=== PATIENT | male | born 1980 | race Caucasian/White ===

== ENCOUNTER 2019-07-01 14:59 | Emergency (ER) | payer MEDICARE, SELFPAY ==
[2019-07-01 15:02] VITALS: BP 133/89; PULSE 98; RESP 17; TEMP 36.6; O2SAT 95; BMI 21.5
--- NOTE | 2019-07-01 15:54 | XR_ITS ---
WS: [id number] Portable AP upright chest, 07/01/2019 Clinical Data: cough/congestion Comparison: PA and lateral chest, 04/26/2019. Findings: No nodules, masses or effusions are seen. The heart is normal. The pulmonary vascularity is not increased. No pneumonia or pneumothorax is seen. The diaphragms are flattened. There are calcifi ed granulomas in the right hilum and the right midlung. XR/XR chest 1V portable [id number] Impression: Hyperinflation and old granulomatous disease.
--- NOTE | 2019-07-01 16:15 | ED_ITS ---
HPI - SOB/Dyspnea General: Chief Complaint: Shortness of Breath/Dyspnea Stated Complaint: SOB Time Seen by Provider: 07/01/19 15:34 Source: patient Mode of arrival: ambulatory Limitations: no limitations History of Present Illness: HPI Narrative: Patient is a 39-year-old male who presents to ED today with complaints of feeling short of breath and a cough. Patient states he has had symptoms similar previously when he has been diagnosed with pneumonia and/or bronchitis. Patient has not been running fevers. He does not complain of body aches. Patient denies nasal congestion, runny nose, sinus pain/pressure. He denies pain in his chest or difficulty breathing. He does state he normally uses albuterol as needed but has been out of this medication. MD elicited complaint: shortness of breath and cough Pertinent past history: asthma (possibly-undiagnosed ) Onset (ago): day(s) Timing: intermittent (worse with exertion ) Severity: mild Exacerbating factors: exertion Relieving factors: rest Associated symptoms: Reports no associated symptoms and chest congestion; Deny abdominal pain, chest pain, fever(s), hemoptysis, lightheadedness, nausea, orthopnea, palpitations, syncope or vomiting Related Data: Home oxygen amount: none Review of Systems Const: Denies: fever, chills, body aches, change in appetite, change in weight, fatigue or malaise Eyes: Denies: change in vision or blurry vision ENMT: Denies: throat pain, enlarged tonsils or painful swallowing Card: Reports: shortness of breath on exertion; Denies: chest pain, palpitations, irregular heart rhythm, edema, swelling of feet/ankles, lightheadedness, syncope, pre-syncope, shortness of breath when lying down, leg pain with exertion or bluish discoloration of hands/feet Resp: Reports: shortness of breath, productive cough and chest congestion; Denies: coughing up blood GI: Denies: abdominal pain, nausea, vomiting or diarrhea : Denies: flank pain Musc: Denies: neck pain or back pain Skin/Breast: Denies: rash PFSH ED PFSH: Social History Smoking and tobacco status: current every day smoker Physical Exam Const: COMMON NORMALS: no apparent distress, average body habitus, oriented x3, no limitations, healthy appearing and well nourished HENMT: COMMON NORMALS: normocephalic, head/scalp atraumatic, external ears normal, EAC's normal, TM's normal bilaterally, external nose normal, nasal mucous membranes and turbinates normal, moist oral mucous membranes and oropharynx normal HEAD & SCALP: normocephalic and atraumatic NOSE: external nose normal and nasal mucous membranes and turbinates normal EXTERNAL EAR: Yes external ears normal EXTERNAL AUDITORY CANAL: EAC's normal TYMPANIC MEMBRANE: TM's normal bilaterally Eye: COMMON NORMALS: PERRL and EOMs intact bilaterally PUPIL: Yes PERRL Neck/C-Spine: COMMON NORMALS: full ROM, no lymphadenopathy and no meningeal signs Chest: COMMONS NORMALS: inspection of chest normal and palpation of breasts normal Resp: COMMON NORMALS: normal respiratory effort AUSCULTATION: wheezes (mild, diffuse) Cardio: COMMON NORMALS: regular rate and regular rhythm RATE: regular rate RHYTHM: regular rhythm Neuro: COMMON NORMALS: oriented x3 MENINGEAL SIGNS: Yes no meningeal signs Skin: COMMON NORMALS: no rashes or lesions noted GENERAL SKIN EXAM: no rashes or lesions noted Course Vital Signs: Vital signs: Vital Signs Temperature 98 F 07/01/19 16:59 Pulse Rate 89 07/01/19 16:59 Respiratory Rate 18 07/01/19 16:59 Blood Pressure 119/85 07/01/19 16:59 Pulse Oximetry 93 07/01/19 16:59 MDM - SOB/Dyspnea MDM Narrative: Medical decision making narrative: Patient feels better after breathing treatment here. CXR is negative for pneumonia. Most likely patient with upper respiratory infection/bronchitis. There is no indication for antibiotic therapy at this time. Patient will be given a refill of his albuterol and be placed on prednisone for the next 5 days. Imaging Data^: CXR: Radiologist's impression: [address] [place] [address] XRay Report Signed Patient: Andre Ny Unit #: [id number] : 1980 Age/Sex: 39 / M ADM Date: 07/01/19 Loc: ER Room/Bed: Attending Dr: Ordering Provider/Ordering MD: Margaret Moreno Date of Service: 07/01/19 Procedure(s): XR chest 1V portable [id number] Accession Number(s): [id number] Report Number: [id number] WS: [id number] Portable AP upright chest, 07/01/2019 Clinical Data: cough/congestion Comparison: PA and lateral chest, 04/26/2019. Findings: No nodules, masses or effusions are seen. The heart is normal. The pulmonary vascularity is not increased. No pneumonia or pneumothorax is seen. The diaphragms are flattened. There are calcified granulomas in the right hilum and the right midlung. XR/XR chest 1V portable [id number] Impression: Hyperinflation and old granulomatous disease. Dictated By: Elizabeth West MD Signed By: Elizabeth West MD Signed Date/Time: 07/01/19 161 DD/ 1609 Discharge Plan Discharge Patient Disposition: Home, Self-Care Clinical Impression: Bronchitis Condition: Stable Prescriptions: New albuterol sulfate 90 mcg/actuation HFA aerosol inhaler 2 inh INHALATION Q6H PRN (Reason: shortness of breath) Qty: 6.7 RF: 0 prednisone 50 mg tablet 50 mg PO DAILY 5 Days Qty: 5 RF: 0 No Action ibuprofen 200 mg Tablet 400 mg PO PRN RF: 0 Discharge Orders: Discharge Order (Routine); Ordered 07/01/19 Ordered By: Margaret Moreno Discharge Diet: Usual diet Discharge Activity: Increase activity as tolerated Patient Instructions: Bronchitis (Acute) - Adult, Acute Bronchitis (ED) Activity Restrictions/Additional Instructions: Follow up with primary care in a week for continued symptoms. You may return to the emergency department for worsening shortness of breath, chest pains, difficulty breathing, fevers greater than 100.4, or any other concerns you may have. Discharge Date/Time: 07/01/19 16:35 Coding Level of Care Code ED Mortgage Loan Processing Clerk for Chau Valdez
[2019-07-01] MEDS: albuterol 8 gm MDI 2 PUFF INHALATION (16:23)
[2019-07-01 16:24] VITALS: PULSE 98; RESP 17; O2SAT 95
[2019-07-01 16:26] VITALS: PULSE 97
[2019-07-01 16:59] VITALS: BP 119/85; PULSE 89; RESP 18; TEMP 36.6; O2SAT 93
== END 2019-07-01 16:35 | disposition home or self-care (01) ==
PROVIDERS: Emergency Provider Physician Assistant
DX: J40 Bronchitis, not specified as acute or chronic (principal); F17.200 Nicotine dependence, unspecified, uncomplicated
CPT/HCPCS: 71045; 94640; 99281; 99283; J3535

== ENCOUNTER 2019-08-12 00:24 | Emergency (ER) | payer MEDICARE, MEDICAID, SELFPAY ==
[2019-08-12 00:31] VITALS: BP 115/90; PULSE 80; RESP 18; TEMP 36.6; O2SAT 100; BMI 22.3
--- NOTE | 2019-08-12 00:38 | ED_ITS ---
HPI - Wound/Laceration General: Chief Complaint: Wound/Laceration Stated Complaint: possible rectal wound Time Seen by Provider: 08/12/19 00:27 Source: patient Mode of arrival: ambulatory Limitations: no limitations History of Present Illness: HPI narrative: Patient is a very nice 39-year-old male who presents to ED today with complaints of anal pain over the past few days. 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 He states approximately every 6 months he will have a flareup similar to today. He states he has been prescribed steroids and antibiotics previously with success. He has also been doing sitz baths. Onset (ago): day(s) Associated symptoms: Reports no associated symptoms; Denies nausea or vomiting Review of Systems GI: Reports: diarrhea (chronic ), painful bowel movements and rectal pain; Denies: abdominal pain, nausea, vomiting, change in bowel habits, rectal swelling, rectal itching, change in stool character, blood in stool, black tarry stool, mucus in stool, white/light colored stool or fatty stool PFSH ED PFSH: Social History Smoking and tobacco status: current every day smoker Physical Exam Const: COMMON NORMALS: no apparent distress, average body habitus, oriented x3, no limitations, healthy appearing, alert and well nourished GI: COMMON NORMALS: normal to inspection, nondistended, normoactive bowel sounds, soft to palpation, non-tender, no hepatosplenomegaly and no masses PALPATION: Yes soft and Yes no hepatosplenomegaly RECTAL EXAM: Yes other (several ulcerations present around anus) Neuro: COMMON NORMALS: oriented x3 SENSORIUM/ORIENTATION: Yes alert Course Vital Signs: Vital signs: Vital Signs Temperature 97.9 F 08/12/19 00:31 Pulse Rate 67 08/12/19 00:59 Respiratory Rate 16 08/12/19 00:59 Blood Pressure 114/67 08/12/19 00:59 Pulse Oximetry 96 08/12/19 00:59 Discharge Plan Discharge Patient Disposition: Home, Self-Care Clinical Impression: Anal ulceration Condition: Stable Prescriptions: New Medrol (Fernando) 4 mg tablets,dose pack See Rx Instructions .ROUTE .COMPLEX Qty: 21 RF: 0 lidocaine 5 % ointment 1 applic TOPICAL QID 7 Days Qty: 30 RF: 0 Bactrim DS 800-160 mg tablet 1 tab PO BID 7 Days Qty: 14 RF: 0 No Action ibuprofen 200 mg Tablet 400 mg PO PRN RF: 0 albuterol sulfate 90 mcg/actuation HFA aerosol inhaler 2 inh INHALATION Q6H PRN (Reason: shortness of breath) Qty: 6.7 RF: 0 Discharge Orders: Discharge Order (Routine); Ordered 08/12/19 Ordered By: Margaret Moreno Activity Restrictions/Additional Instructions: As discussed continue to use barrier cream such as zinc oxide/baby butt paste as well as continuing to do sitz baths for discomfort. Please follow-up with your primary care provider in 5 to 7 days if symptoms persist. Discharge Date/Time: 08/12/19 00:59 Coding Level of Care Code ED Tinner Automatic for Chau Fwd Exam Expanded Problem Focused
--- NOTE | 2019-08-12 00:40 | PC.NURSE ---
PATIENT STATES THAT HE HAS HAD HIS COLON TAKEN OUT AND THAT HE GETS RED/SORES ON HIS ANUS AREA AND PERINEUM EVERY SIX MONTHS. PATIENT STATES THAT THIS STARTED ABOUT TWO YEARS AGO.
[2019-08-12 00:42] VITALS: BP 115/73; PULSE 75; RESP 16; O2SAT 97
[2019-08-12 00:59] VITALS: BP 114/67; PULSE 67; RESP 16; O2SAT 96
== END 2019-08-12 00:59 | disposition home or self-care (01) ==
PROVIDERS: Emergency Provider Physician Assistant
DX: K62.6 Ulcer of anus and rectum (principal); K62.89 Other specified diseases of anus and rectum; F17.200 Nicotine dependence, unspecified, uncomplicated
CPT/HCPCS: 12345; 99281; 99282

== ENCOUNTER 2019-08-30 00:02 | Emergency (ER) | payer MEDICARE, MEDICAID, SELFPAY ==
--- NOTE | 2019-08-30 00:09 | ED_ITS ---
HPI - SOB/Dyspnea General: Chief Complaint: Shortness of Breath/Dyspnea Stated Complaint: SOB Time Seen by Provider: 08/30/19 00:08 Source: patient Mode of arrival: ambulatory Limitations: no limitations History of Present Illness: HPI Narrative: Patient comes in with shortness of breath for the last 2 hours. Patient has a history of frequent episodes of bronchitis. Patient does smoke routinely. Patient denies any routine use of albuterol or other inhalers. Patient appears in mild distress. Patient appears anxious. Review of Systems General: Reports: 10 or more systems reviewed and unremarkable except in HPI and below Resp: Reports: shortness of breath and wheezing PFS ED PFSH: Social History Smoking and tobacco status: current every day smoker Physical Exam Const: COMMON NORMALS: no apparent distress and oriented x3 GENERAL APPEARANCE: cooperative HENMT: COMMON NORMALS: normocephalic, TM's normal bilaterally and external nose normal HEAD & SCALP: normal to inspection and normocephalic NOSE: external nose normal TYMPANIC MEMBRANE: TM's normal bilaterally MOUTH: oral and palatal mucosa normal THROAT: posterior oropharynx normal Eye: GENERAL EYE: normal appearance of both eyes Neck/C-Spine: COMMON NORMALS: full ROM Lymph: LYMPHATIC: no lymphadenopathy noted Chest: COMMONS NORMALS: inspection of chest normal Resp: COMMON NORMALS: no use of accessory muscles EFFORT & INSPECTION: Yes able to speak in complete sentences AUSCULTATION: wheezes Cardio: COMMON NORMALS: regular rate and regular rhythm RATE: regular rate RHYTHM: regular rhythm GI: COMMON NORMALS: non-tender : COMMON NORMALS: Yes no CVA tenderness BLADDER/KIDNEY EXAM: Yes no CVA tenderness Back/Pelvis: COMMON NORMALS: no CVA tenderness and thoracic and lumbar spine normal to inspection Extremity: COMMON NORMALS: normal to inspection Neuro: COMMON NORMALS: oriented x3 and moves all extremities Psych: COMMON NORMALS: mental status grossly normal and cooperative Skin: COMMON NORMALS: no rashes or lesions noted GENERAL SKIN EXAM: no rashes or lesions noted Course Vital Signs: Vital signs: Vital Signs Temperature 98.5 F 08/30/19 00:16 Pulse Rate 107 H 08/30/19 00:35 Respiratory Rate 18 08/30/19 00:32 Blood Pressure 128/96 08/30/19 00:16 Pulse Oximetry 95 08/30/19 00:32 MDM - SOB/Dyspnea MDM Narrative: Medical decision making narrative: Patient comes in today with shortness of breath and difficulty breathing starting this evening. Patient is a routine smoker and has frequent episodes of bronchitis. On exam we note inspiratory and expiratory wheezing. Skin is warm and dry color is pink. Pulse oxygen is 94% on room air. Differential diagnosis includes asthma, COPD, pneumonia, bronchitis. X-ray noted no infiltrates. Patient was treated with nebulizer treatment of albuterol with ipratropium, 125 Solu-Medrol, and 1 mg of Ativan. Patient had improvement of symptoms and appeared better. Reviewed exam with patient with recommendations for smoking cessation, doxycycline for antibiotic, and a prednisone burst. Patient was also prescribed albuterol inhaler to use as needed for respiratory difficulty. Patient reports understanding of care plan and need for follow-up. Discharge Plan Discharge Patient Disposition: Home, Self-Care Clinical Impression: Acute exacerbation of chronic obstructive airways disease Condition: Stable Prescriptions: New prednisone 20 mg tablet 20 mg PO BID 5 Days Qty: 10 RF: 0 doxycycline hyclate 100 mg capsule 100 mg PO BID 7 Days Qty: 14 RF: 0 albuterol sulfate 90 mcg/actuation HFA aerosol inhaler 2 inh INHALATION Q4H PRN (Reason: shortness of breath or wheezing) Qty: 8.5 RF: 0 No Action ibuprofen 200 mg Tablet 400 mg PO PRN RF: 0 albuterol sulfate 90 mcg/actuation HFA aerosol inhaler 2 inh INHALATION Q6H PRN (Reason: shortness of breath) Qty: 6.7 RF: 0 Medrol (Fernando) 4 mg tablets,dose pack See Rx Instructions .ROUTE .COMPLEX Qty: 21 RF: 0 Discharge Orders: Discharge Order (Routine); Ordered 08/30/19 Ordered By: Duncan Reyes Discharge Diet: Usual diet Discharge Activity: Increase activity as tolerated Patient Instructions: Chronic Bronchitis (ED) Activity Restrictions/Additional Instructions: Stop smoking. Use medications as directed. Drink plenty of fluids. Follow-up with primary care in 1 week. Return to the ER for high fever or worsening symptoms. Coding Level of Care Code ED Senior Software Development Engineer for Chau Valdez Exam Comprehensive
--- NOTE | 2019-08-30 00:14 | XR_ITS ---
WS: [id number] PORTABLE CHEST HISTORY: wheezing COMPARISON: 07/01/2019 Hyperinflated lungs with benign granuloma RIGHT lower lobe. No pleural effusion or pneumothorax. Cardiac size: Normal. Mediastinum/Aorta: Normal mediastinum. No osseous abnormality seen. XR/XR chest 1V portable [id number] IMPRESSION: Chronic emphysema versus exacerbation of reactive airways disease.
[2019-08-30 00:16] VITALS: BP 128/96; RESP 24; TEMP 36.9; O2SAT 94; BMI 22.3
[2019-08-30 00:32] VITALS: PULSE 105; RESP 18; O2SAT 95
[2019-08-30] MEDS: ipratropium-albuterol 3 mL Neb INHALATION (00:32)
[2019-08-30] MEDS: LORazepam 2 mg/mL INJ 1 mL 1 MG IVP (00:34)
[2019-08-30 00:35] VITALS: PULSE 107
[2019-08-30 01:17] VITALS: BP 121/79; PULSE 97; RESP 20; O2SAT 95
[2019-08-30] MEDS: doxycycline 100 mg Tablet PO (01:48)
[2019-08-30 03:34] VITALS: BP 137/82; PULSE 76; RESP 18
== END 2019-08-30 03:36 | disposition home or self-care (01) ==
LOC: ER 01:11
PROVIDERS: Emergency Provider Nurse Practitioner Family
DX: J44.1 Chronic obstructive pulmonary disease with (acute) exacerbation (principal); F17.210 Nicotine dependence, cigarettes, uncomplicated
CPT/HCPCS: 12345; 71045; 94640; 96374; 96375; 99282; 99283; J2060; J2930

== ENCOUNTER 2020-09-01 08:30 | Outpatient (CLI) | payer MEDICARE, MEDICAID, SELFPAY ==
[2020-09-01] MEDS: iohexol 300 mg/mL 50 mL Btl PO (09:12)
--- NOTE | 2020-09-01 10:00 | CT_ITS ---
WS: [id number] CT ABDOMEN PELVIS TECHNIQUE: Contrast-enhanced CT of the abdomen and pelvis with coronal and sagittal reformatted image s. CLINICAL INFORMATION: K62.89 - Other specified diseases of anus and rectum COMPARISON: None. DLP: 1162.[address] scans at [facility] use at least one of these dose optimization techniques: automat ed exposure control; mA and/or kV adjustment per patient size (includes targeted exams where dose is matched to clinical indication); or iterative reconstruction. FINDINGS: Mild diffuse fatty infiltration liver. Normal portal vein and splenic vein. Normal appearing gallblad ashley with dilated proximal common bile duct measuring 7 mm. This tapers normally at the pancreatic hea d. Normal GE junction. Lung bases are well aerated. Normal pancreatic enhancement. Adrenal glands are normal. Normal renal parenchymal enhancement. No hydronephrosis. No abdominal or pelvic lymphadenopa thy. No inguinal lymphadenopathy. Postoperative changes rectosigmoid with anastomosis. There appears to be prior colectomy. No evidence of bowel obstruction. Tiny fat-containing umbilical hernia. Normal lumbar spine. CT/CT abdomen pelvis w con* [id number] IMPRESSION: 1. Mild diffuse fatty infiltration of the liver. 2. No abdominal or pelvic lymphadenopathy. No inguinal lymphadenopathy. 3. Postoperative changes involving the anus and rectosigmoid with anastomosis. No evidence of bowel obstruction. 4. Fluid distended gallbladder with dilated proximal common bile duct measurin g 7 mm. This tapers normally at the pancreatic head. Gallbladder can be further evaluated with ultrasound. 5. No free fluid in the abdomen or pelvis.
[2020-09-01] MEDS: iohexol 300 mg/mL 100 mL Btl IV (10:38)
== END 2020-09-01 08:31 | disposition home or self-care (01) ==
PROVIDERS: Visit Provider Internal Medicine
DX: K62.89 Other specified diseases of anus and rectum (principal); K76.0 Fatty (change of) liver, not elsewhere classified
CPT/HCPCS: 74177; Q9967

== ENCOUNTER 2020-09-06 08:16 | Outpatient (CLI) | payer MEDICARE, MEDICAID, SELFPAY ==
--- NOTE | 2020-09-06 08:30 | FL_ITS ---
WS: [id number] Gastrografin enema, 09/06/2020 Clinical Data: K62.89 - Other specified diseases of anus and rectum Comparison: CT abdomen and pelvis, 09/01/2020. Fluoroscopy time: 1.1 minutes. Findings: The Gastrografin was inserted in a retrograde fashion to fill the rectum and distal small bowel. Ther e was an anastomosis between the distal small bowel and the rectum. There is no fistula seen. No dive rticula were present. There are no polyps or masses. The distal small bowel is unremarkable. The post evacuation film showed no abnormalities. FL/FL enema w gastrografin [id number] Impression: 1. Intact anastomosis between distal small bowel and rectum. 2. No evidence of any fistula or anastomotic leakage.
[2020-09-06] MEDS: diatrizoate meglumine 120 mL Sol PR ×5 (09:42→09:45)
== END 2020-09-06 08:17 | disposition home or self-care (01) ==
LOC: RAD 08:19
PROVIDERS: Visit Provider Internal Medicine
DX: K62.89 Other specified diseases of anus and rectum (principal); K63.89 Other specified diseases of intestine
CPT/HCPCS: 74270

== ENCOUNTER → 2021-01-11 14:22 | Outpatient (BNVA) | payer OTHER, SELFPAY | PROVIDERS: Visit Provider Nurse Practitioner Family | DX: J06.9 Acute upper respiratory infection, unspecified (principal); Z20.822 Contact with and (suspected) exposure to COVID-19 | CPT/HCPCS: 87635 ==

== ENCOUNTER → 2021-01-13 18:30 | Outpatient (BNVA) | payer MEDICARE, MEDICAID, SELFPAY | PROVIDERS: Visit Provider Nurse Practitioner | DX: J02.0 Streptococcal pharyngitis (principal) | CPT/HCPCS: 87880 ==

== ENCOUNTER 2021-02-20 06:23 | Emergency (ER) | payer MEDICARE, MEDICAID, SELFPAY ==
[2021-02-20 06:32] VITALS: BP 120/80; PULSE 77; RESP 16; TEMP 36.6; O2SAT 94; BMI 23.6
--- NOTE | 2021-02-20 06:35 | XRR_ITS ---
PROCEDURE INFORMATION: Exam: XR Chest Exam date and time: 02/20/2021 6:35 AM Age: 41 years old Clinical indication: Patient HX: SOB, coughing since yesterday; Additional info: Dyspnea/cough TECHNIQUE: Imaging protocol: XR of the chest. Views: 1 view. Total images: 1 COMPARISON: CR XR chest 1V portable [id number] 08/30/2019 12:38 AM FINDINGS: Lungs: Benign granulomatous disease of the lung is noted. Pleural spaces: Unremarkable. No pleural effusion. No pneumothorax. Heart/Mediastinum: Unremarkable. No cardiomegaly. Bones/joints: Unremarkable. XR/XR chest 1V portable [id number] IMPRESSION: No acute cardiopulmonary process. Radiation Dose CTDIVOL = (mGy): DLP = (mGy-cm)
--- NOTE | 2021-02-20 06:35 | ECG_ITS ---
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
--- NOTE | 2021-02-20 06:40 | W.ED.SOB ---
HPI - SOB/Dyspnea General: Chief Complaint: Shortness of Breath/Dyspnea Stated Complaint: diff breathing x 2 days Time Seen by Provider: 02/20/21 06:33 History of Present Illness: HPI Narrative: 41-year-old male presents emergency complaining of cough and shortness of breath. Has mildly productive cough mostly clear sputum. He has known history of COPD he only uses albuterol as needed last couple of days he has been using it every few hours while awake. Last used it last night. This morning he feels more short of breath and wheezy. He denies any fever. No hemoptysis. He has chronic diarrhea from her previous colectomy for familial adenomatous polyposis. He is not recently been on any steroids. He is not diabetic he has no known heart history. He denies any orthopnea. He has not had Covid that he knows of he has been immunized completed the immunization series 2 to 3 months ago. MD elicited complaint: shortness of breath and cough Pertinent past history: COPD Onset (ago): day(s) Timing: intermittent Severity: moderate Exacerbating factors: exertion and coughing Relieving factors: bronchodilators Known history of: COPD Associated symptoms: Reports chest congestion and cough; Deny abdominal pain, chest pain, diaphoresis, dizziness, extremity pain, fever(s), hemoptysis, lightheadedness, myalgias, nausea, orthopnea, palpitations, paresthesias, polydipsia, polyuria, rash, sense of impending doom, syncope or vomiting Treatment prior to arrival: bronchodilator (Use last night) Review of Systems Const: Denies: fever(s) or diaphoresis ENMT: Denies: throat pain, ear or mastoid pain, nasal discharge or nasal congestion Card: Denies: chest pain, palpitations, lightheadedness, syncope or orthopnea Resp: Reports: chest congestion; Denies: hemoptysis GI: Denies: abdominal pain, nausea or vomiting : Denies: flank pain, dysuria, urinary frequency or urinary urgency Musc: Denies: extremity pain Skin/Breast: Denies: rash or pruritus Neuro: Denies: dizziness Endo: Denies: polyuria or polydipsia PFSH ED PFSH: Medical History Chronic diarrhea Chronic rectal pain COPD (chronic obstructive pulmonary disease) Family history of FAP (familial adenomatous polyposis) Smoking addiction Surgical History Status post colon resection Social History Smoking and tobacco status: current every day smoker cigarettes Packs smoked per day: 1 Alcohol intake: never Marital status: Single Number of children: 6 Number of grandchildren: 0 Current occupational status: disabled Physical Exam Const: COMMON NORMALS: no acute distress GENERAL APPEARANCE: cooperative and comfortable ORIENTATION/CONSCIOUSNESS: Yes awake, Yes oriented to person, Yes oriented to place and Yes oriented to time HENMT: COMMON NORMALS: normocephalic, atraumatic and hearing grossly normal bilaterally HEAD & SCALP: normocephalic and atraumatic Neck/C-Spine: COMMON NORMALS: no JVD Resp: AUSCULTATION: rhonchi and wheezes Cardio: COMMON NORMALS: no JVD, regular rate, regular rhythm and No murmurs present (Cardio) RATE: regular rate RHYTHM: regular rhythm GI: COMMON NORMALS: Soft to palpation and No hepatosplenomegaly present AUSCULTATION: Yes normoactive bowel sounds PALPATION: Yes Soft to palpation, No Tenderness to palpation present (GI), No Guarding due to palpation present (GI) and Yes No hepatosplenomegaly present Extremity: COMMON NORMALS: normal to inspection, capillary refill normal, no clubbing, cyanosis or edema, no calf tenderness and no pedal edema Neuro: SENSORIUM/ORIENTATION: Yes oriented to person, Yes oriented to place and Yes oriented to time Skin: COMMON NORMALS: no rashes or lesions noted GENERAL SKIN EXAM: no rashes or lesions noted Course Vital Signs: Vital signs: Vital Signs Temperature 98.2 F 02/20/21 09:43 Pulse Rate 72 02/20/21 09:43 Respiratory Rate 12 02/20/21 09:43 Blood Pressure 125/86 02/20/21 09:43 Pulse Oximetry 94 02/20/21 09:43 MDM - SOB/Dyspnea MDM Narrative: Medical decision making narrative: Imaging and labs reviewed. Patient is feeling much better after nebulizer. Initially was concerned little bit he may have Covid we have an outstanding PCR test I do not believe this cover the gets just an exacerbation of his COPD we will discharge him home with albuterol to use as needed as well as a Medrol Dosepak return if his further problems. Lab Data: Labs: Lab Results 02/20/21 02/20/21 02/20/21 07:07 07:42 07:42 WBC 12.8 10^3/uL H 10 ^3/uL (4.0-10.0) RBC 5.37 10^6/uL H 10 ^6/uL (4.1-5.3) Hgb 16.6 g/dL g/dL (11.7-16.6) Hct 46.8 % % (42.0-52.0) MCV 87.2 fl fl (80-94) MCH 30.9 pg pg (28.0-34.0) MCHC 35.5 g/dL g/dL (30.0-36.0) RDW 12.7 % % (12.1-15.1) Plt Count 414 10^3/cmm H 10 ^3/cmm (130-400) MPV 9.5 fL fL (7.4-10.4) Neut % (Auto) 69.7 % % Lymph % (Auto) 20.4 % % Owen % (Auto) 6.5 % % Eos % (Auto) 2.4 % % Baso % (Auto) 0.7 % % Neut # (Auto) 8.89 10^3/uL H 10 ^3/uL (1.8-7.7) Lymph # (Auto) 2.6 10^3/uL 10^3/ uL (0.8-4.8) Owen # (Auto) 0.8 10^3/uL 10^3/ uL (0.2-0.9) Eos # (Auto) 0.3 10^3/uL 10^3/ uL (0.0-0.8) Baso # (Auto) 0.1 10^3/uL 10^3/ uL (0.0-0.1) Nucleated RBC % (a uto) 0 % % Nucleated RBCs # 0.0 /100WBC /100W BC Sodium 141 mmol/L mmol/L (136-145) Potassium 4.3 mmol/L mmol/L (3.5-5.1) Chloride 103 mmol/L mmol/L (98-107) Carbon Dioxide 30 mmol/L H mmol/ L (22-29) Anion Gap 12.3 (5-19) BUN 9 mg/dL mg/dL (6-20) Creatinine 0.9 mg/dL mg/dL (0.7-1.2) GFR Calculation 93.0 mL/min mL/mi n (90-130) Glucose 89 mg/dL mg/dL (65-115) Calculated Osmolal ity 290 mOsm/kg mOsm/ kg (285-295) Calcium 9.6 mg/dL mg/dL (8.5-10.5) Total Bilirubin 0.4 mg/dL mg/dL (0.15-1.2) AST 20 U/L U/L (0-40) ALT 22 U/L U/L (0-41) Alkaline Phosphata se 106 IU/L IU/L (40-130) Total Protein 7.8 g/dL g/dL (6.6-8.7) Albumin 4.8 g/dL g/dL (3.5-5.2) Globulin 3.0 g/dL g/dL (1.3-4.6) SARS-CoV-2 Ag (Rap id) Negative (Negative) Discharge Plan Discharge Patient Disposition: Home Clinical Impression: Acute exacerbation of chronic obstructive airways disease Condition: Stable Prescriptions: New albuterol sulfate 90 mcg/actuation HFA aerosol inhaler 2 inh INHALATION Q4H PRN (Reason: shortness of breath or wheezing) Qty: 18 RF: 0 Medrol (Fernando) 4 mg tablets,dose pack See Rx Instructions .ROUTE .COMPLEX Qty: 21 RF: 0 No Action azithromycin 250 mg tablet See Rx Instructions PO .COMPLEX Qty: 6 RF: 0 Discharge Orders: Discharge ED (Routine); Ordered 02/20/21 Ordered By: Ed Bello Discharge Diet: Usual diet Discharge Activity: Limit activity as instructed Patient Instructions: Opioid Safety Activity Restrictions/Additional Instructions: Maintain self quarantine until your final Covid test is resulted. Follow-up with your primary care doctor the next 3 to 4 days. Have any worsening symptoms return to the emergency room. Coding Level of Care Code ED Labeling Specialist for Chau Fwdavid Exam Comprehensive
[2021-02-20 07:47] VITALS: PULSE 72; RESP 17; O2SAT 94
[2021-02-20] MEDS: ipratropium-albuterol 3 mL Neb INHALATION (07:47)
[2021-02-20 07:55] VITALS: PULSE 78
[2021-02-20 07:55] LABS: Basophils # 0.1 10^3/uL (0.0-0.1); Basophils % 0.7 %; Eosinophils # 0.3 10^3/uL (0.0-0.8); Eosinophils % 2.4 %; Hematocrit 46.8 % (42.0-52.0); Hemoglobin 16.6 g/dL (11.7-16.6); Lymphocytes # 2.6 10^3/uL (0.8-4.8); Lymphocytes % 20.4 %; Mean Corpuscular HGB Conc 35.5 g/dL (30.0-36.0); Mean Corpuscular Hemoglobin 30.9 pg (28.0-34.0); Mean Corpuscular Volume 87.2 fl (80-94); Mean Platelet Volume 9.5 fL (7.4-10.4); Monocytes # 0.8 10^3/uL (0.2-0.9); Monocytes % 6.5 %; Neutrophils # 8.89 10^3/uL (1.8-7.7); Neutrophils % 69.7 %; Nucleated Red Blood Cells % 0 %; Platelet Count 414 10^3/cmm (130-400); Red Blood Count 5.37 10^6/uL (4.1-5.3); Red Cell Distribution Width 12.7 % (12.1-15.1); White Blood Count 12.8 10^3/uL (4.0-10.0)
[2021-02-20 08:00] VITALS: BP 125/86; PULSE 72; RESP 14; TEMP 36.8; O2SAT 94
[2021-02-20] MEDS: sodium chloride 0.9% 1,000 ML 999 ML IV (08:06)
[2021-02-20 08:17] LABS: Alanine Aminotransferase 22 U/L (0-41); Albumin Level 4.8 g/dL (3.5-5.2); Alkaline Phosphatase 106 IU/L (40-130); Anion Gap 12.3 (5-19); Aspartate Amino Transferase 20 U/L (0-40); Blood Urea Nitrogen 9 mg/dL (6-20); Calcium 9.6 mg/dL (8.5-10.5); Carbon Dioxide 30 mmol/L (22-29); Chloride 103 mmol/L (98-107); Creatinine Clr Calc Pharmacy 109.1597; Glucose 89 mg/dL (65-115); Osmolality Calculated 290 mOsm/kg (285-295); Potassium 4.3 mmol/L (3.5-5.1); Sodium 141 mmol/L (136-145); Total Bilirubin 0.4 mg/dL (0.15-1.2); Total Protein 7.8 g/dL (6.6-8.7)
[2021-02-20 08:35] LABS: SARS Covid-2 Antigen Negative (Negative)
[2021-02-20 09:30] VITALS: BP 125/86; PULSE 73; RESP 12
[2021-02-20 09:43] VITALS: BP 125/86; PULSE 72; RESP 12; TEMP 36.8; O2SAT 94
[2021-02-21 17:00] LABS: Coronavirus Test Green County Not Detected
== END 2021-02-20 09:47 | disposition home or self-care (01) ==
PROVIDERS: Emergency Provider Family Medicine
DX: J44.1 Chronic obstructive pulmonary disease with (acute) exacerbation (principal); F17.210 Nicotine dependence, cigarettes, uncomplicated
CPT/HCPCS: 71045; 80053; 85025; 87426; 87635; 93005; 94640; 96360; 99284; 99291; J2930; J7030

== ENCOUNTER → 2021-04-07 12:24 | Outpatient (BNVA) | payer MEDICARE, MEDICAID, SELFPAY | PROVIDERS: Visit Provider Nurse Practitioner | DX: J02.9 Acute pharyngitis, unspecified (principal); J32.9 Chronic sinusitis, unspecified | CPT/HCPCS: 87880 ==

== ENCOUNTER 2021-05-21 23:36 | Emergency (ER) | payer MEDICARE, MEDICAID, SELFPAY ==
[2021-05-21 23:44] VITALS: BP 142/85; PULSE 80; RESP 14; TEMP 36.4; O2SAT 94; BMI 26.6
--- NOTE | 2021-05-21 23:52 | ED_ITS ---
HPI - Extremity Problem General: Chief complaint: Extremity Injury, Upper Stated complaint: Lt Arm Pain Time Seen by Provider: 05/21/21 23:52 History of Present Illness: HPI Narrative: 41-year-old male patient comes in today with complaints of left upper arm pain. Patient reports he was cleaning his bathtub and was reaching with his right arm and started having some discomfort in his left upper arm. Patient reports that it is aggravated at times with some movement but for the most part just aches. Patient appears well. Patient appears in no acute distress. Patient has a history of COPD and nicotine abuse. Patient denies any falls or other injuries. Review of Systems Musc: Reports: extremity pain PFSH ED PFSH: Medical History Chronic diarrhea Chronic rectal pain COPD (chronic obstructive pulmonary disease) Family history of FAP (familial adenomatous polyposis) Smoking addiction Surgical History Status post colon resection Social History Smoking and tobacco status: current some day smoker cigarettes Packs smoked per day: 1 Alcohol intake: never Marital status: Single Number of children: 6 Number of grandchildren: 0 Current occupational status: disabled Physical Exam Const: COMMON NORMALS: healthy appearing Neck/C-Spine: COMMON NORMALS: full ROM CERVICAL SPINE: No Cervical spine tenderness Chest: COMMONS NORMALS: normal palpation of entire chest wall Resp: COMMON NORMALS: normal respiratory effort and clear to auscultation bilaterally AUSCULTATION: clear to auscultation bilaterally Cardio: COMMON NORMALS: regular rate and regular rhythm RATE: regular rate RHYTHM: regular rhythm GI: COMMON NORMALS: Soft to palpation PALPATION: Yes Soft to palpation and No Tenderness to palpation present (GI) Back/Pelvis: THORACIC SPINE/UPPER BACK: No thoracic spinal tenderness LUMBAR SPINE/LOWER BACK: No lumbar spinal tenderness Extremity: COMMON NORMALS: full ROM LEFT UPPER EXTREMITY: Yes shoulder joint Left shoulder joint: Yes inspection and Yes palpation and Yes upper arm Left upper arm: Yes inspection and Yes palpation Skin: COMMON NORMALS: no rashes or lesions noted GENERAL SKIN EXAM: no rashes or lesions noted Course Vital Signs: Vital signs: Vital Signs Temperature 97.6 F 05/21/21 23:44 Pulse Rate 80 05/21/21 23:44 Respiratory Rate 14 05/21/21 23:44 Blood Pressure 142/85 05/21/21 23:44 Pulse Oximetry 94 05/21/21 23:44 MDM - Extremity (Nontraumatic) MDM Narrative: Medical decision making narrative: Patient comes in today with complaints of left upper arm pain. Patient states the pain started when he was cleaning his bathtub as he was reaching with his right arm the left arm started hurting. Patient reports nothing makes the pain worse and nothing makes the pain better. Patient appears well. Lungs are clear to auscultation. Heart rates regular. EKG shows a sinus rhythm. Comparing the EKG to a prior exam done in February 2021 showed no changes. Differential diagnosis includes but not limited to muscle strain, cervical radiculopathy, angina. EKG was normal and no signs of angina was indicated on exam. Patient has no shortness of breath or chest pain. EKG was unremarkable and was no change from prior exam. I think the patient has musculoskeletal pain. After further prying patient admitted that he was cleaning his tub and reaching with his right arm when he started having the pain I believe he may have because some nerve impingement or just strained a muscle. I encourage patient to maintain activity and drink plenty of water and use acetaminophen or ibuprofen for pain. Patient reported understanding and agreed to plan. Discharge Plan Discharge Patient Disposition: Home Clinical Impression: Muscle strain of left upper extremity Qualifiers: Encounter type: initial encounter Qualified Code(s): S46.912A - Strain of unspecified muscle, fascia and tendon at shoulder and upper arm level, left arm, initial encounter Condition: Stable Prescriptions: No Action sulfamethoxazole-trimethoprim [Bactrim DS] 800-160 mg tablet 1 tab PO Q12H 7 Days Qty: 14 RF: 0 lidocaine 4 % cream 1 applic topical BID PRN (Reason: pain) Qty: 30 RF: 1 albuterol sulfate 90 mcg/actuation HFA aerosol inhaler 2 inh INHALATION Q4H PRN (Reason: shortness of breath or wheezing) Qty: 18 RF: 0 Discharge Orders: Discharge ED (Routine); Ordered 05/22/21 Ordered By: Duncan Reyes Discharge Diet: Usual diet Discharge Activity: Increase activity as tolerated Patient Instructions: Musculoskeletal Pain (ED) Activity Restrictions/Additional Instructions: Activity as tolerated. Use acetaminophen or ibuprofen for pain. Gentle stretching and range of motion exercises. Drink plenty of water. Follow-up with primary care for further instruction. Return to the ER for new concerns. Coding Level of Care Code ED Custodial Operations Manager for Chau Valdez
--- NOTE | 2021-05-22 00:27 | ECG_ITS ---
Test Date: 2021-05-22 Pat Name: Andre Ny Department: Room: Gender: Male Recovery Analyst: : 1980 Requested By: Duncan Cordoba Order Number: [id number] Yancey MD: Christina Alston M.D. Measurements Intervals Patten Rate: 68 P: 65 PA: 163 QRS: -2 QRSD: 96 T: 53 QT: 388 QTc: 415 Interpretive Statements SINUS RHYTHM INCOMPLETE RIGHT BUNDLE BRANCH BLOCK [90+ ms QRS DURATION, TERMINAL R IN V1/V2, 40+ ms S IN I/aVL/V4/V5/V6] Compared to ECG 02/20/2021 07:24:22 Incomplete right bundle-branch block now present Sinus arrhythmia no longer present Electronically Signed On 05-23-2021 17:39:34 USER EXPERIENCE ANALYST by Christina Alston M.D. [email or web address]
[2021-05-22 01:02] VITALS: BP 140/79; PULSE 74; RESP 14; O2SAT 96
== END 2021-05-22 01:00 | disposition home or self-care (01) ==
PROVIDERS: Emergency Provider Nurse Practitioner Family
DX: S46.912A Strain of unspecified muscle, fascia and tendon at shoulder and upper arm level, left arm, initial encounter (principal); J44.9 Chronic obstructive pulmonary disease, unspecified; F17.210 Nicotine dependence, cigarettes, uncomplicated; X50.1XXA Overexertion from prolonged static or awkward postures, initial encounter
CPT/HCPCS: 93005; 99282

== ENCOUNTER 2021-06-20 02:48 | Emergency (ER) | payer MEDICARE, MEDICAID, SELFPAY ==
[2021-06-20 02:56] VITALS: BP 128/71; PULSE 78; RESP 18; TEMP 36.4; O2SAT 97; BMI 25.1
--- NOTE | 2021-06-20 03:10 | PC.NURSE ---
patient arrival with c/o infection to rectum. states does not have a colon and the acids intermittently cause an infection. states steroids and antibiotics clear it up. reports s/s started one week ago. respirations even equal and unlabored.
--- NOTE | 2021-06-20 03:19 | ED_ITS ---
HPI - General Adult General: Chief complaint: General Medical Stated complaint: Infection Rectum Time Seen by Provider: 06/20/21 03:07 Source: patient Limitations: no limitations History of Present Illness: 41-year-old male has had chronic ulcerations gets infected to the rectum from diarrhea from previous GI surgeries. He states he had increasing erythema and pain. Denies any fever denies any abdominal pain denies any worsening proving factors. Associated symptoms: Deny chest pain, dyspnea, headache(s), nausea, rash or vomiting Review of Systems Const: Denies: fever(s), chills, body aches or change in appetite Eyes: Denies: blurry vision or eye discomfort ENMT: Denies: throat pain or dental pain Card: Denies: chest pain Resp: Denies: dyspnea GI: Reports: rectal pain; Denies: abdominal pain, nausea, vomiting or diarrhea : Denies: dysuria Musc: Denies: neck pain or back pain Skin/Breast: Denies: rash Neuro: Denies: headache(s) Psych: Denies: depression Yoel/Lymph: Denies: easy bruising All/Imm: Denies: urticaria PFSH ED PFSH: Medical History Chronic diarrhea Chronic rectal pain COPD (chronic obstructive pulmonary disease) Family history of FAP (familial adenomatous polyposis) Smoking addiction Surgical History Status post colon resection Social History Smoking and tobacco status: current every day smoker cigarettes Packs smoked per day: 1 Alcohol intake: never Marital status: Single Number of children: 6 Number of grandchildren: 0 Current occupational status: disabled Physical Exam Const: COMMON NORMALS: no acute distress, patient oriented x3 and healthy appearing HENMT: COMMON NORMALS: normocephalic and atraumatic HEAD & SCALP: normocephalic and atraumatic Eye: COMMON NORMALS: Equal, round and reactive pupils present and EOMs intact bilaterally PUPIL: Yes Equal, round and reactive pupils present Neck/C-Spine: COMMON NORMALS: full ROM and supple Chest: COMMONS NORMALS: normal inspection of the chest and normal palpation of entire chest wall Resp: COMMON NORMALS: normal respiratory effort, No retractions, No use of accessory muscles and clear to auscultation bilaterally AUSCULTATION: clear to auscultation bilaterally Cardio: COMMON NORMALS: regular rate, regular rhythm and No murmurs present (Cardio) RATE: regular rate RHYTHM: regular rhythm GI: COMMON NORMALS: Normal to inspection, nondistended, normoactive bowel sounds present, Soft to palpation, non-tender and no masses PALPATION: Yes Soft to palpation OTHER: Ulcerations around the rectum with tenderness Extremity: COMMON NORMALS: normal to inspection and full ROM Neuro: COMMON NORMALS: patient oriented x3, moves all extremities and no focal motor deficits Psych: COMMON NORMALS: mental status grossly normal, Normal thought process present and cooperative THOUGHT PROCESS: Normal thought process present Skin: COMMON NORMALS: no rashes or lesions noted and no wounds GENERAL SKIN EXAM: no rashes or lesions noted Course Vital Signs: Vital signs: Vital Signs Temperature 97.6 F 06/20/21 02:56 Pulse Rate 78 06/20/21 02:56 Respiratory Rate 18 06/20/21 02:56 Blood Pressure 128/71 06/20/21 02:56 Pulse Oximetry 97 06/20/21 02:56 [facility] - General Adult Medical Decision Making Patient presents here with rectal pain and ulcerations to his rectum acute on chronic. Will place patient on clindamycin along with cream. He is to follow- up with Dr. Elias and return if worsening understands agrees to plan. Discharge Plan Discharge Patient Disposition: Home Clinical Impression: Chronic rectal pain, Rectal ulceration Condition: Stable Prescriptions: Continued clindamycin HCl 300 mg capsule 300 mg PO BID 7 Days Qty: 14 0RF nystatin-triamcinolone 100,000-0.1 unit/g-% cream 1 applic topical BID 7 Days Qty: 60 0RF No Action lidocaine 4 % cream 1 applic topical BID PRN (Reason: pain) Qty: 30 1RF albuterol sulfate 90 mcg/actuation HFA aerosol inhaler 2 inh INHALATION Q4H PRN (Reason: shortness of breath or wheezing) Qty: 18 0RF Discharge Orders: Discharge ED (Routine); Ordered 06/20/21 Ordered By: Pippa Dugan Referrals: Blake Elias MD [Physician] - 1-3 days Discharge Diet: Advance as tolerated Discharge Activity: Resume usual activity Patient Instructions: Rectal Pain (ED) Coding Level of Care Code ED Supervisor Hydrochloric Area for [place] José Miguel
== END 2021-06-20 03:26 | disposition home or self-care (01) ==
PROVIDERS: Emergency Provider Emergency Medicine
DX: K62.6 Ulcer of anus and rectum (principal); G89.29 Other chronic pain; J44.9 Chronic obstructive pulmonary disease, unspecified; F17.210 Nicotine dependence, cigarettes, uncomplicated
CPT/HCPCS: 99283

== ENCOUNTER 2021-07-01 11:03 | Emergency (ER) | payer MEDICARE, MEDICAID, SELFPAY ==
[2021-07-01 11:05] VITALS: BP 118/72; PULSE 102; RESP 16; TEMP 36.6; O2SAT 92; BMI 25.1
[2021-07-01 11:18] VITALS: BP 133/85; PULSE 96; RESP 14; TEMP 36.7; O2SAT 93
--- NOTE | 2021-07-01 11:24 | XRR_ITS ---
PROCEDURE INFORMATION: Exam: XR Chest Exam date and time: 07/01/2021 11:24 AM Age: 41 years old Clinical indication: Shortness of breath; Additional info: Covid symptoms TECHNIQUE: Imaging protocol: XR of the chest. Views: 1 view. COMPARISON: CR XR chest 1V portable [id number] 02/20/2021 6:51 AM FINDINGS: Lungs: There is a small benign calcified granuloma in the right lung base. The lungs are otherwise clear. Pleural spaces: Unremarkable. No pleural effusion. No pneumothorax. Heart/Mediastinum: Unremarkable. No cardiomegaly. Bones/joints: Unremarkable. XR/XR chest 1V portable [id number] IMPRESSION: No acute abnormality.
--- NOTE | 2021-07-01 12:18 | W.ED.GENADLT ---
HPI - General Adult General: Chief complaint: Shortness of Breath/Dyspnea Stated complaint: Head congestion, sob Time Seen by Provider: 07/01/21 11:18 History of Present Illness: CC: Shortness of breath, fever and generalized weakness HPI: This is a [41] yo patient w/ hx of prior colon resection presenting to the ED with malaise, generalized weakness, cough sputum production, and fever at home since this morning. Since onset of symptoms, has had some shortness of breath and decreased PO intake. NO recent travel. Endorses no sick contacts around. Denies chest pain, N/V, diaphoresis, exertional shortness of breath, GI or other complaints. Denies any pleuritic chest pain, recent surgery/immobilization/travel, or hematemesis or hx of VTE in the past. Onset: this morning Duration: ongoing for since the am Location: home Severity: mild/moderate Associated symptoms: Reports dyspnea and malaise; Deny chest pain, nausea, rash, palpitations or vomiting Review of Systems Const: Reports: chills, fatigue, malaise and other (+generalized weakness); Denies: fever(s) Eyes: Denies: change in vision ENMT: Denies: mouth pain Card: Denies: chest pain or palpitations Resp: Reports: dyspnea and non-productive cough GI: Denies: abdominal pain, nausea, vomiting or diarrhea : Denies: dysuria Musc: Denies: extremity pain Skin/Breast: Denies: rash or new lesions Neuro: Denies: weakness in extremities Psych: Reports: other (Normal mood) Yoel/Lymph: Denies: easy bruising PFSH ED PFSH: Medical History Chronic diarrhea Chronic rectal pain COPD (chronic obstructive pulmonary disease) Family history of FAP (familial adenomatous polyposis) Smoking addiction Surgical History Status post colon resection Social History Smoking and tobacco status: current every day smoker cigarettes Packs smoked per day: 1 Alcohol intake: never Marital status: Single Number of children: 6 Number of grandchildren: 0 Current occupational status: disabled Physical Exam Const: COMMON NORMALS: alert HENMT: COMMON NORMALS: atraumatic HEAD & SCALP: atraumatic MOUTH: moist mucous membranes not abnormal Eye: COMMON NORMALS: EOMs intact bilaterally and conjunctivae normal CONJUNCTIVA: Yes conjunctivae normal Neck/C-Spine: COMMON NORMALS: full ROM and supple Resp: COMMON NORMALS: normal respiratory effort and clear to auscultation bilaterally AUSCULTATION: clear to auscultation bilaterally Cardio: COMMON NORMALS: regular rate RATE: regular rate GI: COMMON NORMALS: Soft to palpation and non-tender PALPATION: Yes Soft to palpation Extremity: COMMON NORMALS: full ROM Neuro: SENSORIUM/ORIENTATION: Yes alert MOTOR EXAM: No Abnormal motor strength present and Other motor observations present (no focal motor deficits) Psych: COMMON NORMALS: speech normal SPEECH: Yes normal speech MOOD & AFFECT: Yes euthymic mood Course Vital Signs: Vital signs: Vital Signs Temperature 98.6 F 07/01/21 14:56 Pulse Rate 91 07/01/21 14:56 Respiratory Rate 14 07/01/21 14:56 Blood Pressure 135/90 07/01/21 14:56 Pulse Oximetry 93 07/01/21 14:56 MDM - General Adult Medical Decision Making [41]yo patient presenting to the ED with shortness of breath, cough, and malaise concerning viral infection vs bacterial pneumonia. Given History, Exam, and Workup presentation most consistent with pneumonia.Presentation not consistent with PE, COPD exacerbation, Pneumothorax, TB, Atypical ACS, Esophageal Rupture, Toxic Exposure, Foreign Body Airway Obstruction. Workup: XR Chest, COVID PCR Intervention: Tylenol 1gram, PO challenge, serial reassessment [3:29pm] On reassessment, XR negative for any consolidations. Covid negative. Rhinovirus positive. Patient tolerated PO without any difficulities. Continues sat >95% on ambulation and on room air. Rx Tylenol PRN pain and fever Disposition: Discharge. Patient counseled regarding diagnostic impression, treatment plan. Patient given ED strict return precautions to return for continuation, worsening, or development of new symptoms. Instructed to f/u w/ PCP regarding symptoms today. Patient verbalized understanding. Lab Data Radiology Impressions Chest X-Ray 07/01/21 11:24 IMPRESSION: No acute abnormality. Laboratory Results Coronavirus 229E (PCR) Not detected (NOT DETECT) 07/01/21 12:35 Human Metapneumovir PCR Not detected (NOT DETECT) 07/01/21 15:17 Influenza Type A Ag Negative (Negative) 07/01/21 12:35 Influenza Type B Ag Negative (Negative) 07/01/21 12:35 Entero/Rhino (PCR) Detected (NOT DETECT) A 07/01/21 15:17 SARS-CoV-2 (PCR) Not detected (NOT DETECT) 07/01/21 12:35 Imaging Data Other Imaging: Radiologist's impression: [address] [address] XRay Report Signed Patient: Andre Ny Unit #: [id number] : 1980 Age/Sex: 41 / M ADM Date: 07/01/21 Loc: ER Room/Bed: Attending Dr: Ordering Provider/Ordering MD: Esau Mack MD Date of Service: 07/01/21 Procedure(s): XR chest 1V portable [id number] Accession Number(s): [id number] Report Number: [id number] PROCEDURE INFORMATION: Exam: XR Chest Exam date and time: 07/01/2021 11:24 AM Age: 41 years old Clinical indication: Shortness of breath; Additional info: Covid symptoms TECHNIQUE: Imaging protocol: XR of the chest. Views: 1 view. COMPARISON: CR XR chest 1V portable [id number] 02/20/2021 6:51 AM FINDINGS: Lungs: There is a small benign calcified granuloma in the right lung base. The lungs are otherwise clear. Pleural spaces: Unremarkable. No pleural effusion. No pneumothorax. Heart/Mediastinum: Unremarkable. No cardiomegaly. Bones/joints: Unremarkable. XR/XR chest 1V portable [id number] IMPRESSION: No acute abnormality. ? Dictated By: Hossein Ace Signed By: Hossein Ace Signed Date/Time: 07/01/21 1237 DD/ 1124 Discharge Plan Discharge Patient Disposition: Home Clinical Impression: Acute dyspnea, Cough, Generalized weakness, Rhinovirus Condition: Stable Prescriptions: New Zofran 4 mg tablet 4 mg PO TID PRN (Reason: nausea and vomiting) 4 Days Qty: 12 0RF acetaminophen 500 mg tablet 500 mg PO Q6H PRN (Reason: pain) 5 Days Qty: 20 0RF Pepcid 20 mg tablet 20 mg PO BID PRN (Reason: abdominal pain) 10 Days Qty: 20 0RF albuterol sulfate 90 mcg/actuation HFA aerosol inhaler 2 inh inhalation Q4H PRN (Reason: shortness of breath or wheezing) 5 Days Qty: 6.7 0RF Maalox Advanced 1,000-60 mg tablet,chewable 1 tab PO TID PRN (Reason: abdominal pain) 7 Days Qty: 21 0RF No Action lidocaine 4 % cream 1 applic topical BID PRN (Reason: pain) Qty: 30 1RF albuterol sulfate 90 mcg/actuation HFA aerosol inhaler 2 inh INHALATION Q4H PRN (Reason: shortness of breath or wheezing) Qty: 18 0RF clindamycin HCl 300 mg capsule 300 mg PO BID 7 Days Qty: 14 0RF nystatin-triamcinolone 100,000-0.1 unit/g-% cream 1 applic topical BID 7 Days Qty: 60 0RF Discharge Orders: Discharge ED (Routine); Ordered 07/01/21 Ordered By: Esau Mack Discharge Diet: Advance as tolerated Discharge Activity: Increase activity as tolerated Patient Instructions: COVID-19 (Coronavirus Disease 2019) (ED) Activity Restrictions/Additional Instructions: Come back to the emergency room if your symptoms worsen, have any shortness of breath, fever/chills, dehydration, inability tolerate food or drinks, any difficulty breathing, or any new or concerning complaints. Please return the emergency room if your pulse ox reads less than 88%. Stand Alone Forms: Work/School Release Coding Level of Care Code ED Cordage Sales Representative for Chau Fwdavid Exam Comprehensive
[2021-07-01] MEDS: sodium chloride 0.9% 1,000 ML 999 ML IV (13:19)
[2021-07-01] MEDS: acetaminophen 500 mg Tablet 1000 MG PO (13:19)
[2021-07-01 13:46] LABS: Influenza A by IFA Negative (Negative); Influenza B by IFA Negative (Negative)
[2021-07-01 14:56] VITALS: BP 135/90; PULSE 91; RESP 14; TEMP 37; O2SAT 93
[2021-07-01 15:04] LABS: Adenovirus Not Detected (NOT DETECT); Chlamydia Pneumoniae Not Detected (NOT DETECT); Coronavirus 229E,HKU1,NL63,OC4 Not Detected (NOT DETECT); Human Metapneumovirus Not Detected (NOT DETECT); Human Rhinovirus/Enterovirus Detected (NOT DETECT); Influenza A Not Detected (NOT DETECT); Influenza A H1 Not Detected (NOT DETECT); Influenza A H1-2009 Not Detected (NOT DETECT); Influenza A H3 Not Detected (NOT DETECT); Influenza B Not Detected (NOT DETECT); Mycoplasma Pneumoniae Not Detected (NOT DETECT); Parainfluenza Virus Type 1 Not Detected (NOT DETECT); Parainfluenza Virus Type 2 Not Detected (NOT DETECT); Parainfluenza Virus Type 3 Not Detected (NOT DETECT); Parainfluenza Virus Type 4 Not Detected (NOT DETECT); Respiratory Syncytial Virus A Not Detected (NOT DETECT); Respiratory Syncytial Virus B Not Detected (NOT DETECT); SARS-COV-2 Not Detected (NOT DETECT)
[2021-07-01 15:17] LABS: Human Metapneumovirus Not Detected (NOT DETECT); Human Rhinovirus/Enterovirus Detected (NOT DETECT); Results from Genmark
[2021-07-01 15:52] VITALS: BP 135/90; PULSE 82; RESP 18; TEMP 36.8; O2SAT 94
[2021-07-01 15:53] VITALS: BP 135/90; PULSE 82; RESP 18; TEMP 36.7; O2SAT 94
--- NOTE | 2021-07-01 17:17 | ECG_ITS ---
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 Measurements Intervals [place] Rate: 93 P: 79 MI: 153 QRS: 84 QRSD: 87 T: 58 QT: 347 QTc: 433 Interpretive Statements SINUS RHYTHM INDETERMINATE AXIS POSSIBLE RIGHT VENTRICULAR CONDUCTION DELAY [RSR (QR) IN V1/V2] Compared to ECG 05/22/2021 00:32:17 Indeterminate axis now present Incomplete right bundle-branch block no longer present Electronically Signed On 07-02-2021 17:16:50 SASH FINISHER by Christina Alston M.D. [id number]
== END 2021-07-01 15:40 | disposition home or self-care (01) ==
PROVIDERS: Emergency Provider Emergency Medicine
DX: B34.8 Other viral infections of unspecified site (principal); R06.00 Dyspnea, unspecified; J44.9 Chronic obstructive pulmonary disease, unspecified; F17.210 Nicotine dependence, cigarettes, uncomplicated; Z20.822 Contact with and (suspected) exposure to COVID-19
CPT/HCPCS: 71045; 87635; 87801; 87804; 93005; 96360; 99283; J7030

== ENCOUNTER 2021-10-10 22:36 | Emergency (ER) | payer MEDICARE, MEDICAID, SELFPAY ==
[2021-10-10 22:47] VITALS: BP 120/81; PULSE 72; RESP 18; TEMP 36.9; O2SAT 95; BMI 24.3
--- NOTE | 2021-10-10 23:47 | XRR_ITS ---
PROCEDURE INFORMATION: Exam: XR Chest Exam date and time: 10/11/2021 12:36 AM Age: 41 years old Clinical indication: Shortness of breath; Patient HX: C/O persistent SOB. Covid + on September 25. TECHNIQUE: Imaging protocol: XR of the chest. Views: 1 view. COMPARISON: CR XR chest 1V portable [id number] 07/01/2021 11:48 AM FINDINGS: Lungs: Stable right calcified hilar nodes and/or mediastinal nodes and/or lung nodules consistent with old granulomatous disease. Stable hyperaerated lungs consistent with deep inspiratory effort vs reactive airway disease vs mild COPD . Pleural spaces: Unremarkable. No pleural effusion. No pneumothorax. Heart/Mediastinum: Unremarkable. No cardiomegaly. Bones/joints: Unremarkable. XR/XR chest 1V portable [id number] IMPRESSION: Stable hyperaerated lungs consistent with deep inspiratory effort vs reactive airway disease vs mild COPD .
--- NOTE | 2021-10-10 23:48 | ECG_ITS ---
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 Measurements Intervals [place] Rate: 62 P: 67 IN: 162 QRS: 2 QRSD: 103 T: 50 QT: 398 QTc: 404 Interpretive Statements SINUS RHYTHM POSSIBLE RIGHT VENTRICULAR CONDUCTION DELAY [RSR (QR) IN V1/V2] Compared to ECG 07/01/2021 11:12:30 Indeterminate axis no longer present Electronically Signed On 10-11-2021 15:18:35 CDT by Alverto Walden M.D. [id number]
--- NOTE | 2021-10-11 00:26 | W.ED.SOB ---
HPI - SOB/Dyspnea General: Chief Complaint: Shortness of Breath/Dyspnea Stated Complaint: SOB Time Seen by Provider: 10/11/21 00:22 History of Present Illness: HPI Narrative: Patient is a 41-year-old male comes to the ED with shortness of breath. Symptoms started approximately 4 days ago. History of COPD and patient is a daily tobacco smoker. Patient says shortness of breath only occurs upon exertion. He denies any shortness of breath at rest. He says the shortness of breath improves once he rests after exertion. Denies any chest pain. Patient did note that he was diagnosed with COVID-19 back on September 25 but all he had was a fever for 1 day and no other symptoms. Here in the ED he denies any current symptoms or shortness of breath. Denies any cough, fever, chills, abdominal pain, nausea/vomiting, bladder or bowel symptoms. Associated symptoms: Deny abdominal pain, chest pain, fever(s), nausea, orthopnea, palpitations or vomiting Review of Systems Const: Denies: fever(s), chills or fatigue Eyes: Denies: change in vision or eye discomfort ENMT: Denies: throat pain, odynophagia, nasal discharge or nasal congestion Card: Reports: dyspnea on exertion; Denies: chest pain, palpitations, edema, swelling of feet/ankles or orthopnea Resp: Reports: dyspnea (Upon exertion); Denies: productive cough or non-productive cough GI: Denies: abdominal pain, nausea, vomiting, diarrhea, constipation or hematochezia : Denies: flank pain, difficulty urinating, dysuria or hematuria Musc: Denies: neck pain, back pain or extremity swelling Skin/Breast: Denies: rash or new lesions Neuro: Denies: headache(s), numbness in extremities or weakness in extremities PFSH ED PFSH: Medical History Chronic diarrhea Chronic rectal pain COPD (chronic obstructive pulmonary disease) Family history of FAP (familial adenomatous polyposis) Smoking addiction Surgical History Status post colon resection Social History Smoking and tobacco status: current every day smoker cigarettes Packs smoked per day: 1 Alcohol intake: never Marital status: Single Number of children: 6 Number of grandchildren: 0 Current occupational status: disabled Physical Exam Const: COMMON NORMALS: no acute distress, patient oriented x3, healthy appearing and alert GENERAL APPEARANCE: cooperative and comfortable HENMT: COMMON NORMALS: normocephalic HEAD & SCALP: normocephalic MOUTH: Normal oral and palatal mucosa present THROAT: posterior oropharynx normal and uvula midline Neck/C-Spine: COMMON NORMALS: supple GENERAL: Yes normal visual inspection Resp: COMMON NORMALS: normal respiratory effort, No retractions, No use of accessory muscles and clear to auscultation bilaterally AUSCULTATION: clear to auscultation bilaterally Cardio: COMMON NORMALS: regular rate, regular rhythm, S1 normal heart sound present, S2 normal heart sound present, No gallops present (Cardio), No clicks present (Cardio), No murmurs present (Cardio) and Peripheral pulses 2+ throughout RATE: regular rate RHYTHM: regular rhythm HEART SOUNDS: S1 normal heart sound present and S2 normal heart sound present PERIPHERAL PULSES: Peripheral pulses 2+ throughout GI: COMMON NORMALS: Normal to inspection, nondistended, normoactive bowel sounds present, Soft to palpation, non-tender and no masses PALPATION: Yes Soft to palpation : COMMON NORMALS: Yes no CVA tenderness BLADDER/KIDNEY EXAM: Yes no CVA tenderness Back/Pelvis: COMMON NORMALS: no CVA tenderness Extremity: COMMON NORMALS: normal to inspection and no pedal edema Neuro: COMMON NORMALS: patient oriented x3 and moves all extremities SENSORIUM/ORIENTATION: Yes alert Skin: GENERAL SKIN EXAM: dry skin Course Vital Signs: Vital signs: Vital Signs Temperature 98.5 F 10/11/21 01:51 Pulse Rate 74 10/11/21 01:51 Respiratory Rate 18 10/11/21 01:51 Blood Pressure 127/78 10/11/21 01:51 Pulse Oximetry 96 10/11/21 01:51 MDM - SOB/Dyspnea Medical Decision Making Patient is a 41-year-old male comes in the ED with shortness of breath upon exertion. Denies any other symptoms such as cough or chest pain. He has a history of COPD. Vitals are stable patient's O2 saturation is 96% on room air. Patient appears nontoxic in no acute distress or pain. Labs are unremarkable. Troponin negative. EKG showed no acute findings. Chest x-ray showed hyperaerated lungs consistent with mild COPD. Patient was given a dose of Solu-Medrol here in the ED. Patient was stable for discharge home. He was diagnosed with COPD discharged home with a prescription for prednisone. Follow-up with PCP in the next week for reevaluation. Return to ED precautions given. Patient understood agree with plan. Lab Data I reviewed the patient's lab results. : 10/11/21 00:43 10/11/21 00:43 Labs/Radiology: Radiology Impressions Chest X-Ray 10/10/21 23:47 IMPRESSION: Stable hyperaerated lungs consistent with deep inspiratory effort vs reactive airway disease vs mild COPD . Laboratory Results WBC 10.2 10^3/uL (4.0-10.0) H 10/11/21 00:43 RBC 5.10 10^6/uL (4.1-5.3) 10/11/21 00:43 Hgb 15.4 g/dL (11.7-16.6) 10/11/21 00:43 Hct 44.7 % (42.0-52.0) 10/11/21 00:43 MCV 87.6 fl (80-94) 10/11/21 00:43 MCH 30.2 pg (28.0-34.0) 10/11/21 00:43 MCHC 34.5 g/dL (30.0-36.0) 10/11/21 00:43 RDW 13.3 % (12.1-15.1) 10/11/21 00:43 Plt Count 385 10^3/cmm (130-400) 10/11/21 00:43 MPV 10.2 fL (7.4-10.4) 10/11/21 00:43 Neut % (Auto) 50.0 % 10/11/21 00:43 Lymph % (Auto) 33.1 % 10/11/21 00:43 Garfield % (Auto) 8.5 % 10/11/21 00:43 Eos % (Auto) 6.8 % 10/11/21 00:43 Baso % (Auto) 1.1 % 10/11/21 00:43 Neut # (Auto) 5.11 10^3/uL (1.8-7.7) 10/11/21 00:43 Lymph # (Auto) 3.4 10^3/uL (0.8-4.8) 10/11/21 00:43 [place]field # (Auto) 0.9 10^3/uL (0.2-0.9) 10/11/21 00:43 Eos # (Auto) 0.7 10^3/uL (0.0-0.8) 10/11/21 00:43 Baso # (Auto) 0.1 10^3/uL (0.0-0.1) 10/11/21 00:43 Nucleated RBC % (auto) 0 % 10/11/21 00:43 Nucleated RBCs # 0.0 /100WBC 10/11/21 00:43 Sodium 138 mmol/L (136-145) 10/11/21 00:43 Potassium 3.9 mmol/L (3.5-5.1) 10/11/21 00:43 Chloride 100 mmol/L (98-107) 10/11/21 00:43 Carbon Dioxide 26 mmol/L (22-29) 10/11/21 00:43 Anion Gap 15.9 (5-19) 10/11/21 00:43 BUN 9 mg/dL (6-20) 10/11/21 00:43 Creatinine 0.8 mg/dL (0.7-1.2) 10/11/21 00:43 GFR Calculation 106.5 mL/min (90-130) 10/11/21 00:43 Glucose 92 mg/dL (65-115) 10/11/21 00:43 Calculated Osmolality 284 mOsm/kg (285-295) L 10/11/21 00:43 Calcium 9.7 mg/dL (8.5-10.5) 10/11/21 00:43 Total Bilirubin 0.2 mg/dL (0.15-1.2) 10/11/21 00:43 AST 19 U/L (0-40) 10/11/21 00:43 ALT 17 U/L (0-41) 10/11/21 00:43 Alkaline Phosphatase 105 IU/L (40-130) 10/11/21 00:43 Troponin T Baseline 6 ng/L (0-15) 10/11/21 00:43 NT-Pro-B Natriuret Pep 23 pg/mL (0-125) 10/11/21 00:43 Total Protein 7.3 g/dL (6.6-8.7) 10/11/21 00:43 Albumin 4.5 g/dL (3.5-5.2) 10/11/21 00:43 Globulin 2.8 g/dL (1.3-4.6) 10/11/21 00:43 EKG Data EKG 1: EKG Interpretation Date: 10/10/21 Interpretation: Normal sinus rhythm, 60 bpm, no ST segment elevation or depression seen. Discharge Plan Discharge Patient Disposition: Home Clinical Impression: COPD (chronic obstructive pulmonary disease) Qualifiers: COPD type: unspecified COPD Qualified Code(s): J44.9 - Chronic obstructive pulmonary disease, unspecified Condition: Stable Prescriptions: New prednisone 20 mg tablet 20 mg PO BID 5 Days Qty: 10 0RF No Action lidocaine 4 % cream 1 applic topical BID PRN (Reason: pain) Qty: 30 1RF albuterol sulfate 90 mcg/actuation HFA aerosol inhaler 2 inh INHALATION Q4H PRN (Reason: shortness of breath or wheezing) Qty: 18 0RF clindamycin HCl 300 mg capsule 300 mg PO BID 7 Days Qty: 14 0RF nystatin-triamcinolone 100,000-0.1 unit/g-% cream 1 applic topical BID 7 Days Qty: 60 0RF Discharge Orders: Discharge ED (Routine); Ordered 10/11/21 Ordered By: Gary Berrios Discharge Diet: Regular Discharge Activity: Increase activity as tolerated Patient Instructions: How to Stop Smoking (ED), COPD (Chronic Obstructive Pulmonary Disease) (DC) Activity Restrictions/Additional Instructions: Follow-up with medical provider as directed in the next 5 to 7 days for reevaluation. Take medications as prescribed. Quitting smoking would be beneficial to help improve your COPD symptoms. Return to the ER or your medical provider if condition worsens. Please read and understand discharge instructions. Thank you for choosing [facility] for your healthcare needs today. Please realize this is an emergency room and that we are providing you with a medical screening exam and this may not be complete and all inclusive of all the testing and or work up that you may need to determine your ailment or severity of your illness. It is very important that you follow up as instructed or that you return to the Emergency Department should you have concerns or if your condition changes or worsens in any way. Coding Level of Care Code ED Gospel Worker for Chg Fwd Exam Comprehensive
[2021-10-11 01:10] LABS: Basophils # 0.1 10^3/uL (0.0-0.1); Basophils % 1.1 %; Eosinophils # 0.7 10^3/uL (0.0-0.8); Eosinophils % 6.8 %; Hematocrit 44.7 % (42.0-52.0); Hemoglobin 15.4 g/dL (11.7-16.6); Lymphocytes # 3.4 10^3/uL (0.8-4.8); Lymphocytes % 33.1 %; Mean Corpuscular HGB Conc 34.5 g/dL (30.0-36.0); Mean Corpuscular Hemoglobin 30.2 pg (28.0-34.0); Mean Corpuscular Volume 87.6 fl (80-94); Mean Platelet Volume 10.2 fL (7.4-10.4); Monocytes # 0.9 10^3/uL (0.2-0.9); Monocytes % 8.5 %; Neutrophils # 5.11 10^3/uL (1.8-7.7); Nucleated Red Blood Cells % 0 %; Platelet Count 385 10^3/cmm (130-400); Red Cell Distribution Width 13.3 % (12.1-15.1); White Blood Count 10.2 10^3/uL (4.0-10.0)
[2021-10-11 01:13] LABS: Troponin(5th) Baseline 6 ng/L (0-15)
[2021-10-11 01:22] LABS: Alanine Aminotransferase 17 U/L (0-41); Albumin Level 4.5 g/dL (3.5-5.2); Alkaline Phosphatase 105 IU/L (40-130); Blood Urea Nitrogen 9 mg/dL (6-20); Calcium 9.7 mg/dL (8.5-10.5); Carbon Dioxide 26 mmol/L (22-29); Chloride 100 mmol/L (98-107); Globulin 2.8 g/dL (1.3-4.6); Glomerular Filtration Rate 106.5 mL/min (90-130); Glucose 92 mg/dL (65-115); NT Pro B Type Natriuretic Pept 23 pg/mL (0-125); Osmolality Calculated 284 mOsm/kg (285-295); Sodium 138 mmol/L (136-145); Total Bilirubin 0.2 mg/dL (0.15-1.2); Total Protein 7.3 g/dL (6.6-8.7)
[2021-10-11 01:23] LABS: Anion Gap 15.9 (5-19); Aspartate Amino Transferase 19 U/L (0-40); Potassium 3.9 mmol/L (3.5-5.1)
[2021-10-11 01:25] LABS: Slide Review Slide Review Perform
[2021-10-11 01:51] VITALS: BP 127/78; PULSE 74; RESP 18; TEMP 36.9; O2SAT 96
[2021-10-11 02:24] VITALS: BP 121/73; PULSE 69; RESP 18; TEMP 36.9; O2SAT 95
== END 2021-10-11 02:26 | disposition home or self-care (01) ==
PROVIDERS: Emergency Provider Physician Assistant
DX: J44.9 Chronic obstructive pulmonary disease, unspecified (principal); F17.210 Nicotine dependence, cigarettes, uncomplicated; Z86.16 Personal history of COVID-19
CPT/HCPCS: 71045; 80053; 83880; 84484; 85025; 93005; 96372; 99284; J2930

== ENCOUNTER 2022-03-02 23:17 | Emergency (ER) | payer MEDICARE, MEDICAID, SELFPAY ==
[2022-03-02 23:41] VITALS: BP 156/83; PULSE 93; RESP 17; TEMP 36.5; O2SAT 94; BMI 25.1
--- NOTE | 2022-03-03 00:49 | W.ED.URI ---
HPI - URI/Sore Throat General: Chief Complaint: Dental/Oral Stated Complaint: partner has mouth infection, wants to be check Time Seen by Provider: 03/03/22 00:29 History of Present Illness: Patient is a 42-year-old male comes to the ED with sore throat. Symptoms started today. Patient's partner was just diagnosed with pharyngitis and sent home on a antibiotic. Denies any fever, chills, nasal drainage or congestion, cough, abdominal pain, nausea/vomiting, bladder symptoms or bowel symptoms. Associated symptoms: Deny abdominal pain, chills, chest pain, diarrhea, fever(s), headache(s), nasal congestion, nausea or vomiting Review of Systems Const: Denies: fever(s), chills or fatigue Eyes: Denies: change in vision or eye discomfort ENMT: Reports: throat pain; Denies: odynophagia, nasal discharge or nasal congestion Card: Denies: chest pain, palpitations, edema, swelling of feet/ankles, dyspnea on exertion or orthopnea Resp: Denies: dyspnea, productive cough or non-productive cough GI: Denies: abdominal pain, nausea, vomiting, diarrhea, constipation or hematochezia : Denies: flank pain, difficulty urinating, dysuria or hematuria Musc: Denies: neck pain, back pain or extremity swelling Skin/Breast: Denies: rash or new lesions Neuro: Denies: headache(s), numbness in extremities or weakness in extremities PFSH ED PFSH: Medical History Chronic diarrhea Chronic rectal pain COPD (chronic obstructive pulmonary disease) Family history of FAP (familial adenomatous polyposis) Smoking addiction Surgical History Status post colon resection Social History Smoking and tobacco status: current every day smoker cigarettes Packs smoked per day: 1 Alcohol intake: never Marital status: Single Number of children: 6 Number of grandchildren: 0 Current occupational status: disabled Physical Exam Const: COMMON NORMALS: patient oriented x3 HENMT: COMMON NORMALS: normocephalic HEAD & SCALP: normocephalic MOUTH: Normal oral and palatal mucosa present THROAT: uvula midline and posterior oropharynx abnormal erythema Neck/C-Spine: COMMON NORMALS: supple GENERAL: Yes normal visual inspection Resp: COMMON NORMALS: normal respiratory effort, No retractions, No use of accessory muscles and clear to auscultation bilaterally AUSCULTATION: clear to auscultation bilaterally Cardio: COMMON NORMALS: regular rate, regular rhythm, S1 normal heart sound present, S2 normal heart sound present, No gallops present (Cardio), No clicks present (Cardio), No murmurs present (Cardio) and Peripheral pulses 2+ throughout RATE: regular rate RHYTHM: regular rhythm HEART SOUNDS: S1 normal heart sound present and S2 normal heart sound present PERIPHERAL PULSES: Peripheral pulses 2+ throughout GI: COMMON NORMALS: Normal to inspection, nondistended, normoactive bowel sounds present, Soft to palpation, non-tender and no masses PALPATION: Yes Soft to palpation : COMMON NORMALS: Yes no CVA tenderness BLADDER/KIDNEY EXAM: Yes no CVA tenderness Back/Pelvis: COMMON NORMALS: no CVA tenderness Extremity: COMMON NORMALS: normal to inspection Neuro: COMMON NORMALS: patient oriented x3 GAIT: Yes Normal gait present Skin: GENERAL SKIN EXAM: dry skin Course Vital Signs: Vital signs: Vital Signs Temperature 97.7 F 03/02/22 23:41 Pulse Rate 93 03/02/22 23:41 Respiratory Rate 17 03/02/22 23:41 Blood Pressure 156/83 03/02/22 23:41 Pulse Oximetry 94 03/02/22 23:41 Oxygen Delivery Me thod 03/02/22 23:41 MDM - URI/Sore Throat Medical Decision Making Patient was seen in the ER for sore throat. he has no other complaints. denies any fevers. Vitals stable. Strep was negative. Patient was diagnosed with pharyngitis and was discharged home. Follow-up with PCP within the next week for reevaluation. Lab Data I reviewed the patient's lab results. Laboratory Results Group A Strep Rapid Negative (Negative) 03/03/22 00:40 Discharge Plan Discharge Patient Disposition: Home Clinical Impression: Pharyngitis Qualifiers: Pharyngitis/tonsillitis etiology: unspecified etiology Qualified Code(s): J02.9 - Acute pharyngitis, unspecified Condition: Stable Prescriptions: New clindamycin HCl 150 mg capsule 300 mg PO QID 7 Days Qty: 56 0RF No Action lidocaine 4 % cream 1 applic topical BID PRN (Reason: pain) Qty: 30 1RF nystatin 100,000 unit/gram ointment 1 applic topical QID Qty: 30 1RF ciprofloxacin HCl 750 mg tablet 750 mg PO BID Qty: 30 0RF metronidazole 500 mg tablet 500 mg PO BID Qty: 30 0RF clindamycin HCl 300 mg capsule 300 mg PO BID 7 Days Qty: 14 0RF nystatin-triamcinolone 100,000-0.1 unit/g-% cream 1 applic topical BID 7 Days Qty: 60 0RF albuterol sulfate 90 mcg/actuation HFA aerosol inhaler 2 inh INHALATION Q4H PRN (Reason: shortness of breath or wheezing) Qty: 18 0RF Discharge Orders: Discharge ED (Routine); Ordered 03/03/22 Ordered By: Gary Berrios Discharge Diet: Regular Discharge Activity: Increase activity as tolerated Patient Instructions: Pharyngitis (ED) Activity Restrictions/Additional Instructions: Follow-up with medical provider as directed in the next 7 to 10 days for reevaluation. Take medications as prescribed. Return to the ER or your medical provider if condition worsens. Please read and understand discharge instructions. Thank you for choosing [facility] for your healthcare needs today. Please realize this is an emergency room and that we are providing you with a medical screening exam and this may not be complete and all inclusive of all the testing and or work up that you may need to determine your ailment or severity of your illness. It is very important that you follow up as instructed or that you return to the Emergency Department should you have concerns or if your condition changes or worsens in any way. Coding Level of Care Code ED Truck Rental Manager for Chau Valdez Exam Comprehensive
[2022-03-03 01:14] LABS: Rapid Strep A Test Negative (Negative)
== END 2022-03-03 01:14 | disposition home or self-care (01) ==
PROVIDERS: Emergency Provider Physician Assistant
DX: J02.9 Acute pharyngitis, unspecified (principal); J44.9 Chronic obstructive pulmonary disease, unspecified; F17.210 Nicotine dependence, cigarettes, uncomplicated
CPT/HCPCS: 87081; 87880; 99283

== ENCOUNTER 2022-05-10 02:13 | Emergency (ER) | payer MEDICARE, MEDICAID, SELFPAY ==
[2022-05-10 02:17] VITALS: BP 121/79; PULSE 78; RESP 18; TEMP 36.6; O2SAT 97; BMI 26.6
--- NOTE | 2022-05-10 02:25 | W.ED.BACK ---
HPI - Back Pain/Injury General: Chief Complaint: Back Pain/Injury Stated Complaint: Lower Back Pain Time Seen by Provider: 05/10/22 02:15 Source: patient Mode of arrival: ambulatory Limitations: no limitations History of Present Illness: 40-year-old male states he was loading firewood 2 days ago he states that he felt a strain in his right lower back he has been having worsening back pain since then. States it is worse with bending and walking his pain is currently 6 out of 10 he denies any radiation of his pain he denies any bowel or bladder incontinence. Associated symptoms: Deny abdominal pain, chills, dysuria, fever(s), nausea or vomiting Review of Systems Const: Denies: fever(s), chills, body aches or change in appetite Eyes: Denies: blurry vision or eye discomfort ENMT: Denies: throat pain or dental pain Card: Denies: chest pain Resp: Denies: dyspnea GI: Denies: abdominal pain, nausea, vomiting or diarrhea : Denies: dysuria Musc: Reports: back pain Skin/Breast: Denies: rash Neuro: Denies: headache(s) Psych: Denies: depression Yoel/Lymph: Denies: easy bruising All/Imm: Denies: urticaria PFSH ED PFSH: Medical History Chronic diarrhea Chronic rectal pain COPD (chronic obstructive pulmonary disease) Family history of FAP (familial adenomatous polyposis) Smoking addiction Surgical History Status post colon resection Social History Smoking and tobacco status: current every day smoker cigarettes Packs smoked per day: 1 Alcohol intake: never Marital status: Single Number of children: 6 Number of grandchildren: 0 Current occupational status: disabled Physical Exam Const: COMMON NORMALS: no acute distress HENMT: COMMON NORMALS: normocephalic HEAD & SCALP: normocephalic Eye: COMMON NORMALS: conjunctivae normal CONJUNCTIVA: Yes conjunctivae normal Neck/C-Spine: COMMON NORMALS: full ROM and supple Chest: COMMONS NORMALS: normal inspection of the chest Resp: COMMON NORMALS: normal respiratory effort Cardio: COMMON NORMALS: regular rate, regular rhythm and No murmurs present (Cardio) RATE: regular rate RHYTHM: regular rhythm GI: INSPECTION: Yes normal to inspection Back/Pelvis: OTHER: Tenderness over right lumbar region no midline tenderness no saddle anesthesia Extremity: COMMON NORMALS: normal to inspection Neuro: COMMON NORMALS: moves all extremities and no focal motor deficits Psych: COMMON NORMALS: mental status grossly normal Skin: COMMON NORMALS: no rashes or lesions noted and no wounds GENERAL SKIN EXAM: no rashes or lesions noted Course Vital Signs: Vital signs: Vital Signs Temperature 97.8 F 05/10/22 02:17 Pulse Rate 78 05/10/22 02:17 Respiratory Rate 18 05/10/22 02:17 Blood Pressure 121/79 05/10/22 02:17 Pulse Oximetry 97 05/10/22 02:17 MDM - Back Pain/Injury Medical Decision Making Patient presents for the low back strain from loading firewood he has no signs of epidural abscess or cord compression patient is to take Naprosyn Robaxin and ice at home he stable for discharge. Discharge Plan Discharge Patient Disposition: Home Clinical Impression: Strain of lumbar region Condition: Stable Prescriptions: New methocarbamol 750 mg tablet 750 mg PO Q6H PRN (Reason: spasms) Qty: 20 0RF naproxen [Naprosyn] 500 mg tablet 500 mg PO BID PRN (Reason: pain) Qty: 20 0RF No Action nystatin 100,000 unit/gram ointment 1 applic topical TID Qty: 30 0RF fluconazole [Diflucan] 150 mg tablet 150 mg PO DAILY 3 Days Qty: 3 0RF nystatin 100,000 unit/mL suspension 1 ml PO QID 10 Days Qty: 40 0RF Rx Instructions: swish and spit Discharge Orders: Discharge ED (Routine); Ordered 05/10/22 Ordered By: Pippa Dugan Discharge Diet: Advance as tolerated Discharge Activity: Resume usual activity Coding Level of Care Code ED Business Development Analyst for Chau Valdez
[2022-05-10] MEDS: ketorolac 60 mg/2 mL INJ IM (02:50)
== END 2022-05-10 02:53 | disposition home or self-care (01) ==
PROVIDERS: Emergency Provider Emergency Medicine
DX: S39.012A Strain of muscle, fascia and tendon of lower back, initial encounter (principal); J44.9 Chronic obstructive pulmonary disease, unspecified; F17.210 Nicotine dependence, cigarettes, uncomplicated; X50.0XXA Overexertion from strenuous movement or load, initial encounter
CPT/HCPCS: 96372; 99284; J1885

== ENCOUNTER 2022-09-25 18:14 | Emergency (ER) | payer MEDICARE, MEDICAID, SELFPAY ==
[2022-09-25 18:20] VITALS: BP 165/90; PULSE 92; RESP 16; TEMP 36.7; O2SAT 97; BMI 26.6
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
[2022-09-25] MEDS: HYDROcodone-acetaminophen 7.5-325 mg Tablet 1 TAB PO (18:55)
== END 2022-09-25 18:58 | disposition home or self-care (01) ==
PROVIDERS: Emergency Provider Emergency Medicine; PCP Family Medicine
DX: T21.12XA Burn of first degree of abdominal wall, initial encounter (principal); T23.102A Burn of first degree of left hand, unspecified site, initial encounter; T31.0 Burns involving less than 10% of body surface; X16.XXXA Contact with hot heating appliances, radiators and pipes, initial encounter; J44.9 Chronic obstructive pulmonary disease, unspecified; F17.210 Nicotine dependence, cigarettes, uncomplicated
CPT/HCPCS: 99283

== ENCOUNTER → 2023-01-13 09:57 | Outpatient (BNVA) | payer MEDICARE, MEDICAID, SELFPAY | PROVIDERS: PCP Family Medicine; Visit Provider Nurse Practitioner Family | DX: R05.9 Cough, unspecified (principal); J40 Bronchitis, not specified as acute or chronic | CPT/HCPCS: 87426 ==

== ENCOUNTER 2023-03-10 19:27 | Emergency (ER) | payer MEDICARE, MEDICAID, SELFPAY ==
--- NOTE | 2023-03-10 19:30 | XRR_ITS ---
PROCEDURE INFORMATION: Exam: XR Chest Exam date and time: 03/10/2023 7:56 PM Age: 43 years old Clinical indication: Pain; Chest pressure; Additional info: Cp TECHNIQUE: Imaging protocol: Radiologic exam of the chest. Views: 1 view. COMPARISON: CR (CHEST, ) 10/11/2021 12:36 AM FINDINGS: Lungs: Right lower lobe calcified granuloma. Pleural spaces: Unremarkable. No pleural effusion. No pneumothorax. Heart/Mediastinum: Unremarkable. No cardiomegaly. Bones/joints: Unremarkable. XR/XR chest 1V portable [id number] IMPRESSION: Negative for infiltrate
--- NOTE | 2023-03-10 19:30 | ECG_ITS ---
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 Measurements Intervals [place] Rate: 95 P: 74 [place]: 147 QRS: -17 QRSD: 86 T: 60 QT: 314 QTc: 396 Interpretive Statements SINUS RHYTHM POSSIBLE LEFT ATRIAL ENLARGEMENT [-0.1mV P-WAVE IN V1/V2] POSSIBLE RIGHT VENTRICULAR CONDUCTION DELAY [RSR (QR) IN V1/V2] Compared to ECG 10/11/2021 00:51:52 No significant changes Electronically Signed On 03-11-2023 8:52:03 CARTON WRAPPER by Everardo Quinn M.D. [id number]
[2023-03-10 19:32] VITALS: BP 127/83; PULSE 98; RESP 17; O2SAT 93; BMI 27.1
[2023-03-10 19:52] LABS: Basophils # 0.1 10^3/uL (0.0-0.1); Basophils % 0.6 %; Eosinophils # 0.4 10^3/uL (0.0-0.8); Eosinophils % 2.4 %; Hematocrit 45.6 % (37-53); Lymphocytes % 26.2 %; Mean Corpuscular HGB Conc 34.9 g/dL (30-55); Mean Corpuscular Hemoglobin 31.7 pg (27-33); Mean Corpuscular Volume 90.8 fl (82-101); Mean Platelet Volume 9.1 fL (7.4-10.4); Monocytes # 1.3 10^3/uL (0.2-0.9); Monocytes % 8.4 %; Nucleated Red Blood Cells % 0 %; Platelet Count 441 10^3/cmm (157-399); Red Blood Count 5.02 10^6/uL (3.85-5.65); Red Cell Distribution Width 13.1 % (12.1-15.1); White Blood Count 15.17 10^3/uL (3.29-11.43)
[2023-03-10 20:06] LABS: Troponin(5th) Baseline 17 ng/L (0-15)
[2023-03-10 20:07] LABS: Alanine Aminotransferase 25 U/L (0-41); Albumin Level 4.3 g/dL (3.5-5.2); Alkaline Phosphatase 76 U/L (40-130); Anion Gap 14.5 (5-19); Aspartate Amino Transferase 21 U/L (0-40); Blood Urea Nitrogen 10 mg/dL (6-20); Calcium 11.1 mg/dL (8.5-10.5); Carbon Dioxide 28 mmol/L (22-29); Chloride 100 mmol/L (98-107); Globulin 2.5 g/dL (1.3-4.6); Glomerular Filtration Rate 66.1 mL/min (90-130); Glucose 106 mg/dL (65-115); Lipase 22 U/L (13-60); Osmolality Calculated 287 mOsm/kg (285-295); Potassium 3.5 mmol/L (3.5-5.1); Sodium 139 mmol/L (136-145); Total Bilirubin 0.4 mg/dL (0.15-1.2); Total Protein 6.8 g/dL (6.6-8.7)
--- NOTE | 2023-03-10 20:07 | ED_ITS ---
HPI - Chest Pain General: Chief Complaint: Chest Pain Stated Complaint: chest pain Time Seen by Provider: 03/10/23 19:36 History of Present Illness: Patient presents to the ER with complaints of midsternal chest pain that does not radiate and is not reproducible. Patient states it is a pain/pressure. Patient denies any shortness of breath, diaphoresis, radiation, nausea vomiting. Patient has never had this pain before. Patient does not have any cardiac history. Nothing makes his pain better or worse. Review of Systems 2 General: Reports: 10 or more systems reviewed and unremarkable except in HPI and below PFSH ED PFSH: Medical History Anal infection Anal or rectal pain Chronic diarrhea Chronic rectal pain COPD (chronic obstructive pulmonary disease) Family history of FAP (familial adenomatous polyposis) Smoking addiction Surgical History Status post colon resection Social History Smoking and tobacco/nicotine status: current every day tobacco/nicotine user cigarettes Packs smoked per day: 1 Alcohol intake: never Substance/Drug Use: never Marital status: Single Number of children: 6 Number of grandchildren: 0 Current occupational status: disabled Physical Exam Const: COMMON NORMALS: no acute distress, average body habitus, patient oriented x3, no limitations, healthy appearing, alert and well nourished HENMT: COMMON NORMALS: normocephalic, atraumatic, hearing grossly normal bilaterally, external ears normal, Normal external nose present, moist oral mucous membranes and oropharynx normal HEAD & SCALP: normocephalic and atraumatic NOSE: Normal external nose present EXTERNAL EAR: Yes external ears normal Neck/C-Spine: COMMON NORMALS: no JVD Chest: COMMONS NORMALS: normal inspection of the chest and normal palpation of entire chest wall Resp: COMMON NORMALS: normal respiratory effort, No retractions, No use of accessory muscles and clear to auscultation bilaterally AUSCULTATION: clear to auscultation bilaterally Cardio: COMMON NORMALS: no JVD, regular rate, regular rhythm, S1 normal heart sound present, S2 normal heart sound present, No gallops present (Cardio), No clicks present (Cardio), No murmurs present (Cardio) and No rub (Cardio) RATE: regular rate RHYTHM: regular rhythm HEART SOUNDS: S1 normal heart sound present and S2 normal heart sound present GI: COMMON NORMALS: Normal to inspection, nondistended, normoactive bowel sounds present, Soft to palpation, non-tender, No hepatosplenomegaly present and no masses PALPATION: Yes Soft to palpation and Yes No hepatosplenomegaly present : COMMON NORMALS: Yes no CVA tenderness BLADDER/KIDNEY EXAM: Yes no CVA tenderness Back/Pelvis: COMMON NORMALS: no CVA tenderness Neuro: COMMON NORMALS: patient oriented x3 SENSORIUM/ORIENTATION: Yes alert Course Vital Signs: Vital signs: Vital Signs Pulse Rate 78 03/10/23 21:25 Respiratory Rate 16 03/10/23 21:25 Blood Pressure 118/78 03/10/23 21:25 Pulse Oximetry 95 03/10/23 21:25 Oxygen Delivery Me thod Room Air 03/10/23 19:32 MDM - Chest Pain Medical Decision Making Patient presents with chest pain was worked up in normal cardiac fashion with serial labs and EKGs and chest x-ray. All of which were essentially benign. Patient was chest pain-free during his entire stay. It is felt that this pain is noncardiac in nature and patient be discharged home to follow-up with his PCP for further evaluation testing. Differential Diagnosis Unlikely acute massive pulmonary embolism, acute respiratory failure, acute myocardial infarction, cardiac arrest or sudden cardiac Medical Records I reviewed the patient's medical records. Lab Data I reviewed the patient's lab results. 03/10/23 19:42 03/10/23 19:42 Radiology Impressions Chest X-Ray 03/10/23 19:30 IMPRESSION: Negative for infiltrate Laboratory Results WBC 15.17 10^3/uL (3.29-11.43) H 03/10/23 19:42 RBC 5.02 10^6/uL (3.85-5.65) 03/10/23 19:42 Hgb 15.90 g/dL (11.27-16.99) 03/10/23 19:42 Hct 45.6 % (37-53) 03/10/23 19:42 MCV 90.8 fl (82-101) 03/10/23 19:42 MCH 31.7 pg (27-33) 03/10/23 19:42 MCHC 34.9 g/dL (30-55) 03/10/23 19:42 RDW 13.1 % (12.1-15.1) 03/10/23 19:42 Plt Count 441 10^3/cmm (157-399) H 03/10/23 19:42 MPV 9.1 fL (7.4-10.4) 03/10/23 19:42 Neut % (Auto) 62.0 % 03/10/23 19:42 Lymph % (Auto) 26.2 % 03/10/23 19:42 [place] % (Auto) 8.4 % 03/10/23 19:42 Eos % (Auto) 2.4 % 03/10/23 19:42 Baso % (Auto) 0.6 % 03/10/23 19:42 Neut # (Auto) 9.40 10^3/uL (1.8-7.7) H 03/10/23 19:42 Lymph # (Auto) 4.0 10^3/uL (0.8-4.8) 03/10/23 19:42 [place] # (Auto) 1.3 10^3/uL (0.2-0.9) H 03/10/23 19:42 Eos # (Auto) 0.4 10^3/uL (0.0-0.8) 03/10/23 19:42 Baso # (Auto) 0.1 10^3/uL (0.0-0.1) 03/10/23 19:42 Nucleated RBC % (auto) 0 % 03/10/23 19:42 Nucleated RBCs # 0.0 /100WBC 03/10/23 19:42 Sodium 139 mmol/L (136-145) 03/10/23 19:42 Potassium 3.5 mmol/L (3.5-5.1) 03/10/23 19:42 Chloride 100 mmol/L (98-107) 03/10/23 19:42 Carbon Dioxide 28 mmol/L (22-29) 03/10/23 19:42 Anion Gap 14.5 (5-19) 03/10/23 19:42 BUN 10 mg/dL (6-20) 03/10/23 19:42 Creatinine 1.2 mg/dL (0.7-1.2) 03/10/23 19:42 GFR Calculation 66.1 mL/min (90-130) L 03/10/23 19:42 Glucose 106 mg/dL (65-115) 03/10/23 19:42 Calculated Osmolality 287 mOsm/kg (285-295) 03/10/23 19:42 Calcium 11.1 mg/dL (8.5-10.5) H 03/10/23 19:42 Total Bilirubin 0.4 mg/dL (0.15-1.2) 03/10/23 19:42 AST 21 U/L (0-40) 03/10/23 19:42 ALT 25 U/L (0-41) 03/10/23 19:42 Alkaline Phosphatase 76 U/L (40-130) 03/10/23 19:42 Troponin T Baseline 17 ng/L (0-15) H 03/10/23 19:42 Troponin T 120 Minute 11.96 ng/L (0-15) 03/10/23 21:20 Delta Troponin T -5.04 ABS# (0-10) L 03/10/23 21:20 Total Protein 6.8 g/dL (6.6-8.7) 03/10/23 19:42 Albumin 4.3 g/dL (3.5-5.2) 03/10/23 19:42 Globulin 2.5 g/dL (1.3-4.6) 03/10/23 19:42 Lipase 22 U/L (13-60) 03/10/23 19:42 All radiology interpretation(s) finalized by discharge EKG Data EKG 1: I personally reviewed and interpreted this EKG as follows: EKG interpretation date: 03/10/23 EKG interpretation time: 19:31 Prior EKG tracings: not available for review Interpretation: EKG shows ventricular rate 95 bpm, MO interval 147, QRS duration 86, QTc of 367, sinus rhythm, possible left atrial lodgment, possible right ventricular conduction delay, EKG 2: I personally reviewed and interpreted this EKG as follows: EKG interpretation date: 03/10/23 EKG interpretation time: 22:17 Prior EKG tracings: available for review Interpretation: EKG showed ventricular rate 77 bpm, MO interval 148, QRS duration 97, QTc of 379, sinus rhythm, incomplete right bundle branch block Discharge Plan Discharge Patient Disposition: Home Clinical Impression: Chest pain, non-cardiac Condition: Stable Prescriptions: No Action prednisone 20 mg tablet 60 mg PO DAILY 5 Days Qty: 15 0RF clindamycin HCl 300 mg capsule 600 mg PO Q8H 7 Days Qty: 42 0RF buprenorphine-naloxone 8-2 mg film 1 film sublingual TID Discharge Orders: Discharge ED (Routine); Ordered 03/10/23 Ordered By: Nathan Flores Referrals: Baldemar Tan MD [Primary Care Provider] - 7-10 days Patient Instructions: Chest Pain - Noncardiac Activity Restrictions/Additional Instructions: All your testing to the ER did not show any acute cardiac cause for your chest pain. Is felt to be noncardiac in nature. Please follow-up with your family practice physician in 7 to 10 days for further evaluation and testing as needed. If your chest pain returns or worsens please feel free to return to the ER for further evaluation. Coding Level of Care Code ED Cloth Shearing Supervisor for Chau Valdez
[2023-03-10 21:25] VITALS: BP 118/78; PULSE 78; RESP 16; O2SAT 95
[2023-03-10 21:52] LABS: Troponin 5 2HR 11.96 ng/L (0-15); Troponin 5 2HR Delta -5.04 ABS# (0-10)
--- NOTE | 2023-03-10 22:17 | ECG_ITS ---
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 Measurements Intervals [place] Rate: 77 P: 68 [place]: 148 QRS: 27 QRSD: 97 T: 65 QT: 347 QTc: 394 Interpretive Statements SINUS RHYTHM INCOMPLETE RIGHT BUNDLE BRANCH BLOCK [90+ ms QRS DURATION, TERMINAL R IN V1/V2, 40+ ms S IN I/aVL/V4/V5/V6] Compared to ECG 10/11/2021 00:51:52 Incomplete right bundle-branch block now present Electronically Signed On 03-11-2023 8:52:20 SEISMOGRAPHER by Everardo Quinn M.D. [id number]
[2023-03-10 22:38] VITALS: BP 120/75; PULSE 86; O2SAT 93
== END 2023-03-10 22:42 | disposition home or self-care (01) ==
PROVIDERS: Emergency Medicine; Emergency Provider Emergency Medicine; PCP Family Medicine
DX: R07.89 Other chest pain (principal); J44.9 Chronic obstructive pulmonary disease, unspecified; F17.210 Nicotine dependence, cigarettes, uncomplicated
CPT/HCPCS: 36415; 71045; 80053; 83690; 84484; 85025; 93005; 99285

== ENCOUNTER 2023-07-12 20:08 | Emergency (ER) | payer MEDICARE, MEDICAID, SELFPAY ==
--- NOTE | 2023-07-12 20:09 | ECG_ITS ---
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 Measurements Intervals [place] Rate: 75 P: 74 [place]: 162 QRS: 64 QRSD: 103 T: 48 QT: 359 QTc: 401 Interpretive Statements SINUS RHYTHM INDETERMINATE AXIS INCOMPLETE RIGHT BUNDLE BRANCH BLOCK [90+ ms QRS DURATION, TERMINAL R IN V1/V2, 40+ ms S IN I/aVL/V4/V5/V6] Compared to ECG 03/10/2023 22:17:44 Indeterminate axis now present Electronically Signed On 07-13-2023 10:24:10 CDT by Alverto Walden M.D. [id number]
--- NOTE | 2023-07-12 20:10 | XRR_ITS ---
PROCEDURE INFORMATION: Exam: XR Chest Exam date and time: 07/12/2023 8:29 PM Age: 43 years old Clinical indication: Chest pressure; Patient HX: Chest pain TECHNIQUE: Imaging protocol: Radiologic exam of the chest. Views: 1 view. COMPARISON: CR XR chest 1V portable [id number] 03/10/2023 7:56 PM FINDINGS: Lungs: Unremarkable. No consolidation. Calcified granuloma in the right lung base redemonstrated. Pleural spaces: Unremarkable. No pleural effusion. No pneumothorax. Heart/Mediastinum: Unremarkable. No cardiomegaly. Bones/joints: Unremarkable. XR/XR chest 1V portable [id number] IMPRESSION: No acute findings.
[2023-07-12 20:13] VITALS: BP 120/77; PULSE 80; RESP 16; TEMP 36.6; O2SAT 94; BMI 26.6
[2023-07-12 20:35] LABS: Basophils # 0.1 10^3/uL (0.0-0.1); Basophils % 0.9 %; Eosinophils # 0.5 10^3/uL (0.0-0.8); Eosinophils % 5.4 %; Hematocrit 44.8 % (37-53); Lymphocytes # 3.5 10^3/uL (0.8-4.8); Lymphocytes % 38.4 %; Mean Corpuscular HGB Conc 33.9 g/dL (30-55); Mean Corpuscular Hemoglobin 30.5 pg (27-33); Mean Corpuscular Volume 89.8 fl (82-101); Mean Platelet Volume 9.3 fL (7.4-10.4); Monocytes # 0.8 10^3/uL (0.2-0.9); Monocytes % 8.2 %; Neutrophils % 46.9 %; Nucleated Red Blood Cells % 0 %; Platelet Count 390 10^3/cmm (157-399); Red Blood Count 4.99 10^6/uL (3.85-5.65); Red Cell Distribution Width 12.8 % (12.1-15.1); White Blood Count 9.15 10^3/uL (3.29-11.43)
[2023-07-12 20:46] VITALS: BP 126/72; PULSE 68; RESP 16; O2SAT 92
[2023-07-12 20:49] LABS: INR 0.99 (0.8-1.2)
--- NOTE | 2023-07-12 20:51 | W.ED.CHESTPA ---
HPI - Chest Pain General: Chief Complaint: Chest Pain Stated Complaint: Chest Pain Time Seen by Provider: 07/12/23 20:15 History of Present Illness: 43-year-old male presents to the emergency department with complaints of substernal lower chest pain that started approximately 30 minutes prior to arrival while he was sitting on the couch. He states that at that time the pain was a 10 out of 10 but now the pain has subsided and is a 2 out of 10. He denies shortness of breath dizziness nausea vomiting fevers chills or night sweats. He denies diaphoresis. He states that the chest discomfort felt like a spasm that he has had this in the past and was evaluated and it was found to be of noncardiac origin. Review of Systems General: Reports: 10 or more systems reviewed and unremarkable except in HPI and below Card: Reports: chest pain [facility] ED PFSH: Medical History Anal or rectal pain Anal infection Family history of FAP (familial adenomatous polyposis) Smoking addiction COPD (chronic obstructive pulmonary disease) Chronic rectal pain Chronic diarrhea Surgical History Status post colon resection Social History Smoking and tobacco/nicotine status: current every day tobacco/nicotine user cigarettes Packs smoked per day: 1 Alcohol intake: never Substance/Drug Use: never Marital status: Single Number of children: 6 Number of grandchildren: 0 Current occupational status: disabled Physical Exam Const: COMMON NORMALS: no acute distress, patient oriented x3 and alert HENMT: COMMON NORMALS: normocephalic, atraumatic, TM's normal bilaterally, Normal external nose present and moist oral mucous membranes HEAD & SCALP: normocephalic and atraumatic NOSE: Normal external nose present TYMPANIC MEMBRANE: TM's normal bilaterally Eye: COMMON NORMALS: Equal, round and reactive pupils present and EOMs intact bilaterally PUPIL: Yes Equal, round and reactive pupils present Neck/C-Spine: COMMON NORMALS: full ROM, supple and no meningeal signs Resp: COMMON NORMALS: normal respiratory effort, No use of accessory muscles and clear to auscultation bilaterally AUSCULTATION: clear to auscultation bilaterally Cardio: COMMON NORMALS: regular rate, regular rhythm, S1 normal heart sound present, S2 normal heart sound present and Peripheral pulses 2+ throughout RATE: regular rate RHYTHM: regular rhythm HEART SOUNDS: S1 normal heart sound present and S2 normal heart sound present PERIPHERAL PULSES: Peripheral pulses 2+ throughout GI: COMMON NORMALS: Normal to inspection, nondistended, normoactive bowel sounds present, Soft to palpation and non-tender PALPATION: Yes Soft to palpation : COMMON NORMALS: Yes no CVA tenderness BLADDER/KIDNEY EXAM: Yes no CVA tenderness Back/Pelvis: COMMON NORMALS: no CVA tenderness and thoracic and lumbar spine normal to inspection Extremity: COMMON NORMALS: normal to inspection, full ROM and no pedal edema Neuro: COMMON NORMALS: patient oriented x3 SENSORIUM/ORIENTATION: Yes alert MENINGEAL SIGNS: Yes no meningeal signs Psych: COMMON NORMALS: mental status grossly normal and cooperative Skin: COMMON NORMALS: no rashes or lesions noted GENERAL SKIN EXAM: no rashes or lesions noted Course Vital Signs: Vital signs: Vital Signs Temperature 97.9 F 07/12/23 20:13 Pulse Rate 75 07/12/23 21:01 Respiratory Rate 16 07/12/23 21:01 Blood Pressure 115/76 07/12/23 21:01 Pulse Oximetry 92 07/12/23 21:01 Oxygen Delivery Me thod Room Air 07/12/23 21:01 MDM - Chest Pain Medical Decision Making Physical exam completed and documented, I will obtain cardiac enzymes, twelve-lead EKGs, chest x-ray, CBC, CMP, urinalysis, B-type natriuretic peptide, PT/PTT/INR, and a chest x-ray. I have reviewed previous and pertinent medical records for assist in obtaining beneficial medical information to improved the care and treatment of the patient. Differential diagnosis-GERD, atypical chest pain, esophageal spasm, esophagitis Medical Records I reviewed the patient's medical records. Lab Data I reviewed the patient's lab results. 07/12/23 20:28 07/12/23 20:28 Radiology Impressions Chest X-Ray 07/12/23 20:10 IMPRESSION: No acute findings. Laboratory Results WBC 9.15 10^3/uL (3.29-11.43) 07/12/23 20:28 RBC 4.99 10^6/uL (3.85-5.65) 07/12/23 20:28 Hgb 15.20 g/dL (11.27-16.99) 07/12/23: Hct 44.8 % (37-53) 07/12/23: MCV 89.8 fl (82-101) 07/12/23 20: MCH 30.5 pg (27-33) 07/12/23: MCHC 33.9 g/dL (30-55) 07/12/23: RDW 12.8 % (12.1-15.1) 07/12/23: Plt Count 390 10^3/cmm (157-399) 07/12/23: MPV 9.3 fL (7.4-10.4) 07/12/23 Neut % (Auto) 46.9 % 07/12/23: Lymph % (Auto) 38.4 % 07/12/23: Crawford % (Auto) 8.2 % 07/12/23: Eos % (Auto) 5.4 % 07/12/23: Baso % (Auto) 0.9 % 07/12/23: Neut # (Auto) 4.30 10^3/uL (1.8-7.7) 07/12/23: Lymph # (Auto) 3.5 10^3/uL (0.8-4.8) 07/12/23: Crawford # (Auto) 0.8 10^3/uL (0.2-0.9) 07/12/23: Eos # (Auto) 0.5 10^3/uL (0.0-0.8) 07/12/23: Baso # (Auto) 0.1 10^3/uL (0.0-0.1) 07/12/23 Nucleated RBC % (auto) 0 % 07/12/23 Nucleated RBCs # 0.0 /100WBC 07/12/23: PT 13.40 SECONDS (12.1-14.9) 07/12/23: INR 0.99 (0.8-1.2) 07/12/23: Sodium 134 mmol/L (136-145) L 03/09/24 20:28 Potassium 4.0 mmol/L (3.5-5.1) 07/12/23 20:28 Chloride 98 mmol/L (98-107) 07/12/23 20:28 Carbon Dioxide 27 mmol/L (22-29) 07/12/23 20:28 Anion Gap 13.0 (5-19) 07/12/23 20:28 BUN 8 mg/dL (6-20) 07/12/23 20:28 Creatinine 1.1 mg/dL (0.7-1.2) 07/12/23 20:28 GFR Calculation 73.1 mL/min (90-130) L 07/12/23 20:28 Glucose 92 mg/dL (65-115) 07/12/23 20:28 Calculated Osmolality 276 mOsm/kg (285-295) L 07/12/23 20:28 Calcium 9.2 mg/dL (8.5-10.5) 07/12/23 20:28 Total Bilirubin 0.2 mg/dL (0.15-1.2) 07/12/23 20:28 AST 28 U/L (0-40) 07/12/23 20:28 ALT 31 U/L (0-41) 07/12/23 20:28 Alkaline Phosphatase 83 U/L (40-130) 07/12/23 20:28 Troponin T Baseline 9 ng/L (0-15) 07/12/23 20:28 Total Protein 6.3 g/dL (6.6-8.7) L 07/12/23 20:28 Albumin 4.2 g/dL (3.5-5.2) 07/12/23 20:28 Globulin 2.1 g/dL (1.3-4.6) 07/12/23 20:28 Lipase 58 U/L (13-60) 07/12/23 20:28 All radiology interpretation(s) finalized by discharge EKG Data EKG 1: Interpretation: Twelve-lead EKG obtained at 2008 and reviewed at 2011 demonstrates sinus rhythm with a right bundle branch block, reticular rate 75 bpm, ME interval 162, QRS duration 103, QT 359, QTc [address] elevation or depression to demonstrate acute ischemia or infarction at present. Discharge Plan Discharge Patient Disposition: Home Clinical Impression: Atypical chest pain Condition: Stable Prescriptions: No Action buprenorphine-naloxone 8-2 mg film 1 film sublingual TID Discharge Orders: Discharge ED (Routine); Ordered 07/12/23 Ordered By: Ashish Rocha Referrals: Baldemar Tan MD [Primary Care Provider] - Discharge Diet: Usual diet Discharge Activity: Resume usual activity Patient Instructions: Opioid Safety, Pain Management Activity Restrictions/Additional Instructions: Activity Restrictions/Additional Instructions: Thank you for choosing [facility] for your healthcare needs today. Please realize that you were seen in the Emergency Department and that we are providing you with an emergency medical screening exam and this may not be a complete and all inclusive of all the testing and or medical work-up that you may need to determine your ailment or severity of your illness. It is very important that you follow-up as instructed with your Primary care provider or Specialist for additional evaluation and to discuss your medical treatment plan. You may return to the Emergency Department should you have concerns or if your condition changes or worsens in any way. Coding Level of Care Code ED [employer] for Chau Valdez
[2023-07-12 20:58] LABS: Alanine Aminotransferase 31 U/L (0-41); Albumin Level 4.2 g/dL (3.5-5.2); Alkaline Phosphatase 83 U/L (40-130); Blood Urea Nitrogen 8 mg/dL (6-20); Calcium 9.2 mg/dL (8.5-10.5); Carbon Dioxide 27 mmol/L (22-29); Chloride 98 mmol/L (98-107); Creatinine Clr Calc Pharmacy 91.9526; Globulin 2.1 g/dL (1.3-4.6); Glomerular Filtration Rate 73.1 mL/min (90-130); Glucose 92 mg/dL (65-115); Lipase 58 U/L (13-60); Osmolality Calculated 276 mOsm/kg (285-295); Sodium 134 mmol/L (136-145); Total Bilirubin 0.2 mg/dL (0.15-1.2); Total Protein 6.3 g/dL (6.6-8.7)
[2023-07-12 20:59] LABS: Aspartate Amino Transferase 28 U/L (0-40); Troponin(5th) Baseline 9 ng/L (0-15)
[2023-07-12 21:01] VITALS: BP 115/76; PULSE 75; RESP 16; O2SAT 92
[2023-07-12 22:56] VITALS: BP 107/74; PULSE 78; RESP 17; O2SAT 95
== END 2023-07-12 21:39 | disposition home or self-care (01) ==
PROVIDERS: Emergency Medicine; Emergency Provider Internal Medicine; PCP Family Medicine
DX: R07.89 Other chest pain (principal); J44.9 Chronic obstructive pulmonary disease, unspecified; F17.210 Nicotine dependence, cigarettes, uncomplicated
CPT/HCPCS: 71045; 80053; 83690; 84484; 85025; 85610; 93005; 99285

== ENCOUNTER → 2024-05-21 11:39 | Outpatient (BNVA) | payer MEDICARE, MEDICAID, SELFPAY | PROVIDERS: PCP Family Medicine | DX: J02.9 Acute pharyngitis, unspecified (principal) | CPT/HCPCS: 87880 ==

== ENCOUNTER → 2024-12-27 17:59 | Outpatient (BNVA) | payer MEDICARE, SELFPAY | PROVIDERS: PCP Family Medicine; Visit Provider Family Medicine | DX: J02.9 Acute pharyngitis, unspecified (principal) | CPT/HCPCS: 87071; 87880 ==